=== PATIENT | male | born 1945 | race Caucasian/White ===

== ENCOUNTER → 2016-08-30 | Outpatient (REF) | payer MEDICARE ==
[~2016-08-30] MED LIST: AKWA TEARS OU; AMLO10TAB OR; AMLO2.5T OR; ASPI81TA45 OR; BISA10SU2 PR; COLA100C2 PO; COLCPOW6 PO; COZA100T OR; DIAZ5TAB OR; DOXY100T OR; FLECTOR1.3 TOP; FLEXERIL PO; FLON0.05; GLIM1TAB OR; GLIM1TAB PO; GLIMEPIRIDE PO; GLUC1000 OR; HYDR4TAB OR; JANUVIA PO; LIDO5DIS TD; LOPR50TA OR; METF500T4 OR; METHYLPREDNISOLONE PO; OMEPRAZOLE DR PO; PERC5TAB8 OR; SIMV20TA2 OR; TYL OR; VALI5TAB OR; [UNRECOGNIZED DRUG - OTHER] PO
[2016-08-30 17:07] LABS: ALBUMIN 3.8 GM/DL (3.2-5.2); ALBUMIN/GLOBULIN RATIO 1.41 (1.00-1.93); ALKALINE PHOSPHATASE 58 U/L (45-117); ALT/SGPT 19 U/L (12-78); ANION GAP 7 MEQ/L (8-16); AST/SGOT 14 U/L (15-37); BILIRUBIN,TOTAL 0.7 MG/DL (0.2-1.0); BLOOD UREA NITROGEN 15 MG/DL (7-18); CALCIUM LEVEL 8.4 MG/DL (8.8-10.2); CARBON DIOXIDE LEVEL 30 MEQ/L (21-32); CHLORIDE LEVEL 105 MEQ/L (98-107); CREATININE FOR GFR 1.09 MG/DL (0.70-1.30); GLOMERULAR FILTRATION RATE > 60.0 (>42); GLUCOSE, FASTING 150 MG/DL (83-110); POTASSIUM SERUM 4.1 MEQ/L (3.5-5.1); SODIUM LEVEL 142 MEQ/L (136-145); TOTAL PROTEIN 6.5 GM/DL (6.4-8.2)
[2016-08-30 18:32] LABS: MEAN CORPUSCULAR HEMOGLOBIN 30.9 pg (27.0-33.0); MEAN CORPUSCULAR HGB CONC 33.9 g/dl (32.0-36.5); MEAN CORPUSCULAR VOLUME 91.2 fl (80.0-96.0); RED CELL DISTRIBUTION WIDTH 12.2 % (11.5-14.5); WHITE BLOOD COUNT 8.7 K/mm3 (4.0-10.0)
== END ==
LOC: M SFHCCLAY 08:42
PROVIDERS: ATTEND Family Medicine
DX: Z00.00 Encounter for general adult medical examination without abnormal findings (principal); R53.82 Chronic fatigue, unspecified; E11.9 Type 2 diabetes mellitus without complications

== ENCOUNTER → 2017-07-05 | Outpatient (REF) | payer MEDICARE ==
[2017-07-05 12:00] LABS: ESTIMATED AVERAGE GLUCOSE 131 MG/DL (60-110); HEMOGLOBIN A1c 6.2 %
[2017-07-05 12:02] LABS: ALBUMIN 3.9 GM/DL (3.2-5.2); ALBUMIN/GLOBULIN RATIO 1.39 (1.00-1.93); ALKALINE PHOSPHATASE 51 U/L (45-117); ALT/SGPT 21 U/L (12-78); ANION GAP 6 MEQ/L (8-16); AST/SGOT 14 U/L (7-37); BILIRUBIN,TOTAL 0.7 MG/DL (0.2-1.0); BLOOD UREA NITROGEN 19 MG/DL (7-18); CALCIUM LEVEL 8.7 MG/DL (8.8-10.2); CARBON DIOXIDE LEVEL 31 MEQ/L (21-32); CHLORIDE LEVEL 106 MEQ/L (98-107); CHOLESTEROL LEVEL 177 MG/DL (<200); CHOLESTEROL RISK RATIO 3.218 (<5); CREATININE FOR GFR 0.96 MG/DL (0.70-1.30); GLOMERULAR FILTRATION RATE > 60.0 (>42); GLUCOSE, FASTING 144 MG/DL (83-110); HDL CHOLESTEROL 55 MG/DL (>40); LDL CHOLESTEROL 101.8 MG/DL (<100); NON-HDL-C 122 MG/DL; POTASSIUM SERUM 4.6 MEQ/L (3.5-5.1); SODIUM LEVEL 143 MEQ/L (136-145); TOTAL PROTEIN 6.7 GM/DL (6.4-8.2); TRIGLYCERIDES LEVEL 101 MG/DL (<150)
[2017-07-05 12:17] LABS: MALB URINE SIEMENS 8.3 MG/L; MAU/CREAT RATIO 5.1 MCG/MG (0.0-30.0)
== END ==
LOC: M SFHCCLAY 09:04
DX: E11.9 Type 2 diabetes mellitus without complications (principal); I10 Essential (primary) hypertension
CPT/HCPCS: 80053

== ENCOUNTER → 2017-11-14 | Outpatient (REF) | payer MEDICARE | LOC: M SFHCCLAY 10:13 | DX: D04.5 Carcinoma in situ of skin of trunk (principal); D48.5 Neoplasm of uncertain behavior of skin (principal) | CPT/HCPCS: 88305 ==

== ENCOUNTER → 2018-02-12 | Outpatient (REF) | payer MEDICARE ==
[2018-02-12 11:49] LABS: ANION GAP 8 MEQ/L (8-16); BLOOD UREA NITROGEN 20 MG/DL (7-18); CARBON DIOXIDE LEVEL 31 MEQ/L (21-32); CHLORIDE LEVEL 105 MEQ/L (98-107); CREATININE FOR GFR 1.09 MG/DL (0.70-1.30); GLOMERULAR FILTRATION RATE > 60.0 (>42); GLUCOSE, FASTING 158 MG/DL (70-100); SODIUM LEVEL 144 MEQ/L (136-145)
[2018-02-12 12:03] LABS: ESTIMATED AVERAGE GLUCOSE 157 MG/DL (60-110); HEMOGLOBIN A1c 7.1 %
== END ==
LOC: M SFHCCLAY 07:40
DX: I10 Essential (primary) hypertension (principal); E11.9 Type 2 diabetes mellitus without complications
CPT/HCPCS: 83036

== ENCOUNTER → 2018-06-18 | Outpatient (REF) | payer MEDICARE ==
[2018-06-18 13:56] LABS: HEMOGLOBIN A1c 7.1 %
== END ==
LOC: M SFHCCLAY 08:20
PROVIDERS: ATTEND Family Medicine
DX: E11.9 Type 2 diabetes mellitus without complications (principal); I10 Essential (primary) hypertension
CPT/HCPCS: 83036; G0463

== ENCOUNTER → 2018-07-08 | Outpatient (REF) | payer MEDICARE ==
[2018-07-08 12:45] LABS: BLOOD UREA NITROGEN 15 MG/DL (7-18); CALCIUM LEVEL 9.5 MG/DL (8.8-10.2); CARBON DIOXIDE LEVEL 29 MEQ/L (21-32); CHLORIDE LEVEL 103 MEQ/L (98-107); CREATININE FOR GFR 1.07 MG/DL (0.70-1.30); GLOMERULAR FILTRATION RATE > 60.0 (>42); GLUCOSE, FASTING 140 MG/DL (70-100); POTASSIUM SERUM 4.1 MEQ/L (3.5-5.1); SODIUM LEVEL 139 MEQ/L (136-145)
[2018-07-08 12:46] LABS: HEMATOCRIT 43.1 % (42.0-52.0); HEMOGLOBIN 14.6 g/dl (13.5-17.5); MEAN CORPUSCULAR HEMOGLOBIN 30.7 pg (27.0-33.0); MEAN CORPUSCULAR HGB CONC 33.9 g/dl (32.0-36.5); MEAN CORPUSCULAR VOLUME 90.5 fl (80.0-96.0); PLATELET COUNT, AUTOMATED 248 10^3/uL (150-450); RED BLOOD COUNT 4.76 10^6/uL (4.30-6.10); WHITE BLOOD COUNT 8.4 10^3/uL (4.0-10.0)
[2018-07-10 00:07] LABS: Lyme Disease IgG/IgM Antibodie <0.91 ISR (0.00-0.90); Lyme Disease IgM Ab Quantitati <0.80 index (0.00-0.79)
== END ==
LOC: M SFHCCLAY 08:33
PROVIDERS: ATTEND Family Medicine
DX: G44.321 Chronic post-traumatic headache, intractable (principal)
CPT/HCPCS: 80048; 85027; 86617; G0463

== ENCOUNTER → 2018-07-14 | Outpatient (CLI) | payer MEDICARE ==
--- NOTE | 2018-07-14 20:00 | REP ---
MR BRAIN WITHOUT CONTRAST: HISTORY: Chronic post-traumatic headache. COMPARISON: 11/06/2011 Scattered punctate areas of increased signal intensity on T2 weighted images are present in the periventricular and subcortical white matter. This represents small vessel ischemic disease. There is no intraparenchymal hemorrhage, infarct, mass, or midline shift. The ventricular system and cortical sulci are dilated consistent with moderate volume loss. There is no extracerebral collection. Mucosal thickening is present in the sinuses. IMPRESSION:1. Minimal small vessel ischemic disease. 2. Moderate volume loss. Electronically Signed by Kyle Blackburn MD 07/15/2018 08:24 A
== END ==
LOC: M RAD 16:16
PROVIDERS: ATTEND Family Medicine
DX: G44.321 Chronic post-traumatic headache, intractable (principal); Z86.73 Personal history of transient ischemic attack (TIA), and cerebral infarction without residual deficits; I67.82 Cerebral ischemia

== ENCOUNTER → 2018-07-28 | Outpatient (REF) | payer MEDICARE | LOC: M SFHCCLAY 13:58 | PROVIDERS: ATTEND Family Medicine | DX: R51 Headache (principal) ==

== ENCOUNTER → 2019-03-11 | Outpatient (REF) | payer MEDICARE ==
[2019-03-11 17:23] LABS: ALBUMIN 3.6 GM/DL (3.2-5.2); ALT/SGPT 20 U/L (12-78); BILIRUBIN,TOTAL 0.8 MG/DL (0.2-1.0); BLOOD UREA NITROGEN 16 MG/DL (7-18); CALCIUM LEVEL 9.2 MG/DL (8.8-10.2); CARBON DIOXIDE LEVEL 30 MEQ/L (21-32); CHLORIDE LEVEL 104 MEQ/L (98-107); CHOLESTEROL LEVEL 167 MG/DL (<200); CREATININE FOR GFR 0.99 MG/DL (0.70-1.30); GLOMERULAR FILTRATION RATE > 60.0 (>42); GLUCOSE, FASTING 153 MG/DL (70-100); HDL CHOLESTEROL 50 MG/DL (>40); LDL CHOLESTEROL 87 MG/DL (<100); NON-HDL-C 117 MG/DL; POTASSIUM SERUM 4.4 MEQ/L (3.5-5.1); SODIUM LEVEL 140 MEQ/L (136-145); TOTAL PROTEIN 6.5 GM/DL (6.4-8.2); TRIGLYCERIDES LEVEL 148 MG/DL (<150)
[2019-03-11 17:42] LABS: MALB URINE SIEMENS 6.6 MG/L; MAU/CREAT RATIO 4.1 MCG/MG (0.0-30.0)
[2019-03-11 18:17] LABS: HEMOGLOBIN A1c 7.1 %
== END ==
LOC: M SFHCCLAY 09:37
PROVIDERS: ATTEND Family Medicine
DX: I10 Essential (primary) hypertension (principal); E11.9 Type 2 diabetes mellitus without complications
CPT/HCPCS: 80053; 80061; 82043; 83036; G0463

== ENCOUNTER → 2019-04-28 | Outpatient (REF) | payer MEDICARE ==
[2019-04-28 13:16] LABS: BLOOD UREA NITROGEN 16 MG/DL (7-18); CALCIUM LEVEL 8.9 MG/DL (8.8-10.2); CARBON DIOXIDE LEVEL 31 MEQ/L (21-32); CHLORIDE LEVEL 107 MEQ/L (98-107); CREATININE FOR GFR 1.03 MG/DL (0.70-1.30); GLOMERULAR FILTRATION RATE > 60.0 (>42); GLUCOSE, FASTING 176 MG/DL (70-100); POTASSIUM SERUM 4.4 MEQ/L (3.5-5.1); SODIUM LEVEL 142 MEQ/L (136-145); TOTAL PROTEIN 6.6 GM/DL (6.4-8.2)
[2019-04-30 00:07] LABS: ANA (HEP2) Positive (.); CYCLIC CITRULLINATED PEPTIDE 10 units (0-19); Lyme Disease IgG/IgM Antibodie <0.91 ISR (0.00-0.90); Lyme Disease IgM Ab Quantitati <0.80 index (0.00-0.79)
[2019-04-30 12:40] LABS: ALBUMIN 4.17 GM/DL (3.29-5.55); ALBUMIN % 63.2 % (55.8-66.1); ALPHA-1-GLOBULIN % 4.4 % (2.9-4.9); ALPHA-1-GLOBULINS 0.29 GM/DL (0.17-0.41); ALPHA-2-GLOBULINS 0.65 GM/DL (0.42-0.99); ALPHA-2-GLOBULINS % 9.9 % (7.1-11.8); BETA-1-GLOBULINS 0.39 GM/DL (0.28-0.60); BETA-1-GLOBULINS % 5.9 % (4.7-7.2); BETA-2-GLOBULINS 0.36 GM/DL (0.19-0.55); BETA-2-GLOBULINS % 5.4 % (3.2-6.5); GAMMA GLOBULIN % 11.2 % (11.1-18.8); GAMMA GLOBULINS 0.74 GM/DL (0.65-1.58)
== END ==
LOC: M SFHCCLAY 08:52
PROVIDERS: ATTEND Family Medicine
DX: R51 Headache (principal); I10 Essential (primary) hypertension; Z12.5 Encounter for screening for malignant neoplasm of prostate
CPT/HCPCS: 80048; 83036; 84165; 85652; 86038; 86200; 86617; G0103; G0463

== ENCOUNTER 2019-06-16 12:14 | Emergency (ER) | payer MEDICARE ==
[~2019-06-16] VITALS: Ht 188 cm; Wt 100.0 kg
[2019-06-16] MEDS ORDERED: ASPIRIN 81 MG CHEW TABLET PO ONE (12:45)
[2019-06-16 12:50] LABS: BASO # 0.1 10^3/uL (0.0-0.2); EOS # 0.7 10^3/uL (0.0-0.5); EOS % 8.5 % (0.0-3.0); HEMATOCRIT 47.2 % (42.0-52.0); HEMOGLOBIN 15.5 g/dl (13.5-17.5); LYMPH # 2.6 10^3/uL (1.5-5.0); LYMPH % 32.5 % (24.0-44.0); MEAN CORPUSCULAR HEMOGLOBIN 30.2 pg (27.0-33.0); MEAN CORPUSCULAR HGB CONC 32.8 g/dl (32.0-36.5); MONO # 0.5 10^3/uL (0.0-0.8); MONO % 5.8 % (0.0-5.0); NEUTROPHILS # 4.2 10^3/uL (1.5-8.5); NEUTROPHILS % 51.9 % (36.0-66.0); PLATELET COUNT, AUTOMATED 262 10^3/uL (150-450); RED BLOOD COUNT 5.13 10^6/uL (4.30-6.10)
[2019-06-16 13:03] LABS: INR 1.04; PROTHROMBIN TIME 13.3 SECONDS (11.8-14.0)
--- NOTE | 2019-06-16 13:14 | REP ---
Portable chest x-ray: Two views. History: Chest pain. Comparison study: November 06, 2013. Findings: There is mild linear fibrosis in the left base. Left hemidiaphragm remains slightly elevated. The lungs are otherwise clear. Pleural angles are sharp. Cardiomediastinal silhouette is unremarkable. There are degenerative changes in the thoracic spine. Pulmonary vasculature is not increased. Impression: No active disease. Electronically Signed by Kane Rangel MD 06/16/2019 01:05 P
[2019-06-16 13:17] LABS: ALBUMIN 3.6 GM/DL (3.2-5.2); BILIRUBIN,DIRECT 0.2 MG/DL (0.0-0.2); BILIRUBIN,TOTAL 0.8 MG/DL (0.2-1.0); TOTAL PROTEIN 7.2 GM/DL (6.4-8.2)
[2019-06-16 13:18] LABS: BLOOD UREA NITROGEN 17 MG/DL (7-18); CALCIUM LEVEL 9.2 MG/DL (8.8-10.2); CARBON DIOXIDE LEVEL 30 MEQ/L (21-32); CHLORIDE LEVEL 102 MEQ/L (98-107); CK-MB VALUE MASS < 1.0 NG/ML (<3.6); CPK CREATINE PHOSPHOKINASE 57 U/L (39-308); CREATININE FOR GFR 1.27 MG/DL (0.70-1.30); GLOMERULAR FILTRATION RATE 58.9 (>42); GLUCOSE, FASTING 251 MG/DL (70-100); MB/CK RELATIVE INDEX 1.75 (< OR =4); POTASSIUM SERUM 4.1 MEQ/L (3.5-5.1); SODIUM LEVEL 140 MEQ/L (136-145); TROPONIN I < 0.02 NG/ML (< 0.10)
[2019-06-16 13:45] VITALS: BP 108/66
--- NOTE | 2019-06-17 08:03 | ECGEPIP ---
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
== END 2019-06-16 13:57 | disposition home or self-care (01) ==
LOC: M ED 12:14
DX: R07.89 Other chest pain (principal); R06.02 Shortness of breath; I51.9 Heart disease, unspecified; E11.9 Type 2 diabetes mellitus without complications; I10 Essential (primary) hypertension; K21.9 Gastro-esophageal reflux disease without esophagitis; G89.29 Other chronic pain; G61.0 Guillain-Barre syndrome; Z79.82 Long term (current) use of aspirin; Z79.84 Long term (current) use of oral hypoglycemic drugs; Z79.899 Other long term (current) drug therapy

== ENCOUNTER → 2019-07-29 | Outpatient (REF) | payer MEDICARE ==
[2019-07-29 17:15] LABS: ALBUMIN 3.8 GM/DL (3.2-5.2); ALT/SGPT 26 U/L (12-78); BILIRUBIN,TOTAL 0.6 MG/DL (0.2-1.0); BLOOD UREA NITROGEN 13 MG/DL (7-18); CALCIUM LEVEL 9.3 MG/DL (8.8-10.2); CARBON DIOXIDE LEVEL 32 MEQ/L (21-32); CHLORIDE LEVEL 105 MEQ/L (98-107); CHOLESTEROL LEVEL 196 MG/DL (<200); CHOLESTEROL RISK RATIO 3.843 (<5); CREATININE FOR GFR 1.05 MG/DL (0.70-1.30); GLOMERULAR FILTRATION RATE > 60.0 (>42); GLUCOSE, FASTING 154 MG/DL (70-100); HDL CHOLESTEROL 51 MG/DL (>40); LDL CHOLESTEROL 116 MG/DL (<100); NON-HDL-C 145 MG/DL; POTASSIUM SERUM 4.4 MEQ/L (3.5-5.1); SODIUM LEVEL 141 MEQ/L (136-145); TOTAL PROTEIN 6.7 GM/DL (6.4-8.2); TRIGLYCERIDES LEVEL 147 MG/DL (<150)
[2019-07-29 17:37] LABS: HEMOGLOBIN A1c 7.4 %
[2019-07-29 17:55] LABS: MAU/CREAT RATIO 4.7 MCG/MG (0.0-30.0)
== END ==
LOC: M SFHCCLAY 11:03
PROVIDERS: ATTEND Family Medicine
DX: E11.9 Type 2 diabetes mellitus without complications (principal); I10 Essential (primary) hypertension

== ENCOUNTER → 2019-08-12 | Outpatient (REF) | payer MEDICARE | LOC: M LAB REF 09:00 | PROVIDERS: ATTEND Dermatology | DX: D22.71 Melanocytic nevi of right lower limb, including hip (principal); L57.0 Actinic keratosis ==

== ENCOUNTER → 2019-10-27 | Outpatient (CLI) | payer MEDICARE ==
[~2019-10-27] MED LIST changes: +AMLO10TA5 PO; +ASPI81TA85 PO; +ATOR40TA75 PO; +CENT1TAB PO; +CLAR10CA3 PO; +FLUO1CRE2 TOP; +GLIM1TAB4 PO; +HYDR25TAB PO; +LOSA100T50 PO; +METF500T13 PO; +METO50TA7 PO; +MIRA3350 PO; +OMEP-218 PO; +TRAD5TAB PO
== END ==
LOC: M LABSMTC 10:57
PROVIDERS: ATTEND Anesthesiology
DX: Z01.818 Encounter for other preprocedural examination (principal); Z11.59 Encounter for screening for other viral diseases

== ENCOUNTER 2019-10-29 10:19 | Day surgery (SDC) | payer MEDICARE ==
[~2019-10-29] VITALS: Ht 188 cm; Wt 98.0 kg
[~2019-10-29 10:19] MED LIST changes: +NS 1,000 ML IV ONE
[2019-10-29] MEDS ORDERED: LIDOCAINE 2% 100MG/5ML SDV (FOR ANES.) As Ordered ONE (10:36)
[2019-10-29] MEDS ORDERED: propofoL 200 MG/20 ML VIAL As Ordered ONE (10:36)
--- NOTE | 2019-10-29 12:14 | ROOR ---
Patient Name: Yoav Antunez Procedure Date: 10/29/2019 11:38 AM Date of : 1945 Age: 73 Room: [facility] Gender: Male Note Status: Finalized Procedure: Colonoscopy Indications: High risk colon cancer surveillance: Personal history of colonic polyps Providers: Ilya Ponce MD Referring MD: Scar Castro MD Requesting Provider: Medicines: Monitored Anesthesia Care Complications: No immediate complications. Procedure: Pre-Anesthesia Assessment: - Prior to the procedure, a History and Physical was performed, and patient medications and allergies were reviewed. The patient is competent. The risks and benefits of the procedure and the sedation options and risks were discussed with the patient. All questions were answered and informed consent was obtained. Patient identification and proposed procedure were verified by the physician, the nurse and the guest service host in the endoscopy suite. Mental Status Examination: alert and oriented. Airway Examination: normal oropharyngeal airway and neck mobility. Respiratory Examination: clear to auscultation. CV Examination: normal. Prophylactic Antibiotics: The patient does not require prophylactic antibiotics. Prior Anticoagulants: The patient has taken no previous anticoagulant or antiplatelet agents except for aspirin. ASA Grade Assessment: III - A patient with severe systemic disease. After reviewing the risks and benefits, the patient was deemed in satisfactory condition to undergo the procedure. The anesthesia plan was to use monitored anesthesia care (MAC). Immediately prior to administration of medications, the patient was re-assessed for adequacy to receive sedatives. The heart rate, respiratory rate, oxygen saturations, blood pressure, adequacy of pulmonary ventilation, and response to care were monitored throughout the procedure. The physical status of the patient was re-assessed after the procedure. The Colonoscope was introduced through the anus and advanced to the cecum, identified by appendiceal orifice and ileocecal valve. The colonoscopy was performed without difficulty. The patient tolerated the procedure well. The quality of the bowel preparation was good. Findings: Hemorrhoids were found on perianal exam. A diminutive polyp was found in the appendiceal orifice. The polyp was sessile. The polyp was removed with a cold snare. Resection and retrieval were complete. Estimated blood loss was minimal. A diminutive polyp was found in the transverse colon. The polyp was sessile. The polyp was removed with a cold snare. Resection and retrieval were complete. Estimated blood loss was minimal. A diminutive polyp was found in the descending colon. The polyp was sessile. The polyp was removed with a cold snare. Resection and retrieval were complete. Estimated blood loss was minimal. The retroflexed view of the distal rectum and anal verge was normal and showed no anal or rectal abnormalities. Impression: - Hemorrhoids found on perianal exam. - One diminutive polyp at the appendiceal orifice, removed with a cold snare. Resected and retrieved. - One diminutive polyp in the transverse colon, removed with a cold snare. Resected and retrieved. - One diminutive polyp in the descending colon, removed with a cold snare. Resected and retrieved. - The distal rectum and anal verge are normal on retroflexion view. Recommendation: - Discharge patient to home (ambulatory). - - Repeat colonoscopy at 5 years (optional) depending on his general health Ilya Ponce MD Ilya Ponce MD 10/29/2019 12:14:24 PM Electronically signed by Ilya Ponce MD Number of Addenda: 0 Note Initiated On: 10/29/2019 11:38 AM Estimated Blood Loss: Estimated blood loss was minimal.
[2019-10-29 12:43] VITALS: BP 126/69
== END 2019-10-29 12:46 | disposition home or self-care (01) ==
LOC: M OPP 10:19
PROVIDERS: ATTEND Surgery
DX: D12.1 Benign neoplasm of appendix (principal); D12.3 Benign neoplasm of transverse colon; D12.4 Benign neoplasm of descending colon; D12.5 Benign neoplasm of sigmoid colon; K64.9 Unspecified hemorrhoids; R10.2 Pelvic and perineal pain; K21.9 Gastro-esophageal reflux disease without esophagitis; K59.00 Constipation, unspecified; Z86.010 Personal history of colon polyps; I10 Essential (primary) hypertension; E11.9 Type 2 diabetes mellitus without complications; Z79.899 Other long term (current) drug therapy; Z91.018 Allergy to other foods

== ENCOUNTER → 2019-12-01 | Outpatient (REF) | payer MEDICARE ==
[~2019-12-01] MED LIST changes: -NS 1,000 ML IV ONE
[2019-12-02 12:07] LABS: BLOOD UREA NITROGEN 18 MG/DL (7-18); CALCIUM LEVEL 8.9 MG/DL (8.8-10.2); CARBON DIOXIDE LEVEL 31 MEQ/L (21-32); CHLORIDE LEVEL 103 MEQ/L (98-107); CREATININE FOR GFR 1.01 MG/DL (0.70-1.30); GLOMERULAR FILTRATION RATE > 60.0 (>42); GLUCOSE, FASTING 148 MG/DL (70-100); POTASSIUM SERUM 3.9 MEQ/L (3.5-5.1); SODIUM LEVEL 138 MEQ/L (136-145)
[2019-12-02 13:02] LABS: HEMOGLOBIN A1c 7.9 %
== END ==
LOC: M SFHCCLAY 15:45
PROVIDERS: ATTEND Family Medicine
DX: R53.1 Weakness (principal); E11.9 Type 2 diabetes mellitus without complications; I10 Essential (primary) hypertension

== ENCOUNTER → 2020-07-26 | Outpatient (REF) | payer MEDICARE ==
[~2020-07-26] MED LIST changes: -AMLO10TA5 PO; +AMLO1TAB25 PO; -ASPI81TA85 PO; +ASPI81TA86 PO
[2020-07-26 16:50] LABS: BLOOD UREA NITROGEN 16 MG/DL (7-18); CALCIUM LEVEL 9.3 MG/DL (8.8-10.2); CARBON DIOXIDE LEVEL 32 MEQ/L (21-32); CHLORIDE LEVEL 106 MEQ/L (98-107); CPK CREATINE PHOSPHOKINASE 98 U/L (39-308); CREATININE FOR GFR 1.19 MG/DL (0.70-1.30); GLOMERULAR FILTRATION RATE > 60.0 (>42); GLUCOSE, FASTING 162 MG/DL (70-100); POTASSIUM SERUM 4.8 MEQ/L (3.5-5.1); SODIUM LEVEL 141 MEQ/L (136-145)
[2020-07-26 20:44] LABS: HEMOGLOBIN A1c 6.9 %
== END ==
LOC: M SFHCCLAY 11:00
PROVIDERS: ATTEND Family Medicine
DX: M79.10 Myalgia, unspecified site (principal); E11.9 Type 2 diabetes mellitus without complications; I10 Essential (primary) hypertension
CPT/HCPCS: 80048; 82550; 83036; 85652; G0463

== ENCOUNTER 2020-09-24 11:33 | Observation (INO) | payer MEDICARE ==
[~2020-09-24] VITALS: Ht 188 cm; Wt 95.0 kg
[~2020-09-24 11:33] MED LIST changes: +HYDR-3490 PO; -HYDR25TAB PO
[2020-09-24] MEDS ORDERED: JARD1TAB PO (11:51)
[2020-09-24] MEDS ORDERED: DIAZ5TAB PO (11:51)
[2020-09-24] MEDS ORDERED: PENI500T PO (11:51)
[2020-09-24 12:10] LABS: BASO # 0.1 10^3/uL (0.0-0.2); BASO % 1.1 % (0.0-1.0); EOS # 1.2 10^3/uL (0.0-0.5); EOS % 12.9 % (0.0-3.0); HEMATOCRIT 46.4 % (42.0-52.0); HEMOGLOBIN 15.5 g/dl (13.5-17.5); LYMPH # 2.9 10^3/uL (1.5-5.0); LYMPH % 30.4 % (24.0-44.0); MEAN CORPUSCULAR HGB CONC 33.4 g/dl (32.0-36.5); MEAN CORPUSCULAR VOLUME 92.8 fl (80.0-96.0); MONO # 0.6 10^3/uL (0.0-0.8); MONO % 5.9 % (2.0-8.0); NEUTROPHILS # 4.7 10^3/uL (1.5-8.5); NEUTROPHILS % 49.4 % (36.0-66.0); PLATELET COUNT, AUTOMATED 246 10^3/uL (150-450); WHITE BLOOD COUNT 9.5 10^3/uL (4.0-10.0)
[2020-09-24 12:20] LABS: INR 0.94; PARTIAL THROMBOPLASTIN TIME 23.5 SECONDS (24.2-38.5); PROTHROMBIN TIME 12.8 SECONDS (12.5-14.3)
--- NOTE | 2020-09-24 12:21 | REP ---
INDICATION: left arm weakness. COMPARISON: Comparison brain MRI study is from July 14, 2018. Comparison CT study is from August 20, 2013.. TECHNIQUE: Helical scanning is acquired. 5 mm axial images were reformatted. Coronal MPR images were generated. FINDINGS: Bone window settings demonstrate an intact bony calvarium. There is no evidence of skull fracture or incidental bony calvarial lesion. The visualized paranasal sinuses appear clear. No intraorbital abnormality is seen. On soft tissue window setting images; the lateral, third, and fourth ventricles are normal in size and position. Rodríguez-white differentiation pattern is normal above and below the tentorium. There are is no evidence of intracranial hemorrhage. No mass, edema, infarction, or midline shift is seen. No extra-axial fluid collection is appreciated. There is moderate generalized volume loss. Vascular calcification is observed in the distal vertebral and distal internal carotid arteries. IMPRESSION: Moderate generalized volume loss. Advanced vascular calcification. Findings unchanged from the [address] study. No acute intracranial abnormality.. <Electronically signed by Mario Rangel > 09/24/20 [id number]
[2020-09-24] MEDS ORDERED: ASPI81TA26 PO (12:39)
[2020-09-24] MEDS ORDERED: MONT10TA10 PO (12:39)
[2020-09-24 12:40] LABS: CK-MB VALUE MASS 1.4 NG/ML (<3.6); CPK CREATINE PHOSPHOKINASE 76 U/L (39-308); MB/CK RELATIVE INDEX 1.84 (< OR =4); TROPONIN I < 0.02 NG/ML (< 0.10)
--- NOTE | 2020-09-24 12:57 | REP ---
INDICATION: CVA. COMPARISON: Comparison portable chest x-ray is from June 16, 2019. TECHNIQUE: Portable upright AP chest radiograph. FINDINGS: The lungs are well inflated and free of infiltrate. Pleural angles are sharp. Heart size is normal. Pulmonary vasculature is not increased. EKG monitoring electrodes are noted. IMPRESSION: No active disease. <Electronically signed by Mario Rangel > 09/24/20 [id number]
[2020-09-24] MEDS ORDERED: PENICILLIN V POTASSIUM 500 MG TAB PO SCH (13:00)
[2020-09-24] MEDS ORDERED: PREVAGEN PO (13:06)
[2020-09-24] MEDS ORDERED: MIRA3350 PO (13:06)
[2020-09-24] MEDS ORDERED: CENT1TAB PO (13:06)
[2020-09-24 13:24] LABS: RSV AMPLIFICATION NEGATIVE (NEGATIVE)
[2020-09-24] MEDS ORDERED: MIRALAX *UNIT DOSE* 17GM PACKET PO PRN (13:40)
[2020-09-24] MEDS ORDERED: GLUCAGON INJ 1MG VIAL SC PRN (13:40)
[2020-09-24] MEDS ORDERED: diazePAM 5MG TABLET PO PRN (13:40)
[2020-09-24] MEDS ORDERED: GLUCOSE 4GM CHEW TABLET PO PRN (13:40)
[2020-09-24] MEDS ORDERED: DEXTROSE 50% 50 ML SYRINGE IV PRN (13:40)
--- NOTE | 2020-09-24 14:50 | HPEPDOC ---
General Date of Admission Sep 24, 2020 Date of Service: Sep 24, 2020 Chief Complaint The patient is a 74-year-old male admitted with a reason for visit of left arm weakness. Source: Patient History of Present Illness Mr. Antunez is a 74 year old male with diabetes mellitus type 2, hypertension, and history of carotid artery stenosis here with left arm weakness. He tells me that about a year ago, he had left arm weakness and word finding difficulties which lasted for an hour. He thought that this may be secondary to low blood sugar as it resolved after drinking soda. He does have history of carotid artery stenosis. He used to see someone in [place], but told him he was stable and would not need a follow-up for a year. This morning, he felt weak. He was trying to dress himself when he noticed he had weakness in the left arm. To him, he felt like his arm was rubber. He had trouble controlling the motion of his left arm. He denies any lightheadedness, weakness in the right arm, weakness in the legs, or trouble speaking. This occurred around 9 AM. He came to the ED to be evaluated. When he was evaluated in the ED, his symptoms resolved. About 3 hours has passed since it first started. Patient was given full dose aspirin. Work up in the ED was negative for hypoglycemia. CT head demonstrated no acute intracranial activity. When I saw him, he tell me that his left arm was moving better. Strength is about equal on both sides, but finger to nose with left arm is slow and not direct. Case discussed with neurology. Increase aspirin to 325mg qD while inpatient, continue atorvastatin, and complete stroke work up. Patient will be admitted for TIA vs CVA. Home Medications Scheduled Amlodipine Besylate (Amlodipine Besylate) 10 Mg Tablet, 10 MG PO DAILY, (Reported) Aspirin (Aspirin EC) 81 Mg Tablet.dr, 81 MG PO BID, (Reported) Atorvastatin Calcium (Atorvastatin Calcium) 40 Mg Tablet, 40 MG PO QHS, (Reported) Empagliflozin (Jardiance) 10 Mg Tablet, 10 MG PO DAILY, (Reported) Glimepiride (Glimepiride) 1 Mg Tablet, 0.5 MG PO DAILY, (Reported) Hydrochlorothiazide (Hydrochlorothiazide) 25 Mg Tablet, 25 MG PO DAILY, (Reported) Linagliptin (Tradjenta) 5 Mg Tablet, 5 MG PO DAILY, (Reported) Losartan Potassium (Losartan Potassium) 100 Mg Tablet, 100 MG PO DAILY, (Reported) Metformin HCl (Metformin HCl) 500 Mg Tablet, 1,000 MG PO BID, (Reported) Metoprolol Tartrate (Metoprolol Tartrate) 50 Mg Tablet, 50 MG PO BID, (Reported) Montelukast Sodium (Montelukast Sodium) 10 Mg Tablet, 10 MG PO DAILY, (Reported) Multivit-Min/FA/Lycopen/Lutein (Centrum Silver Tablet) 1 Each Tablet, 1 TAB PO DAILY, (Reported) Omeprazole (Omeprazole) 20 Mg Capsule.dr, 20 MG PO BID, (Reported) Penicillin V Potassium (Penicillin V Potassium) 500 Mg Tablet, 500 MG PO QID, (Reported) [Prevagen] , 1 TAB PO DAILY, (Reported) Scheduled PRN Diazepam (Diazepam) 5 Mg Tablet, 5 MG PO DAILY PRN for BACK PAIN, (Reported) Polyethylene Glycol 3350 (Miralax) 119 Gm Powder, 17 GM PO DAILY PRN for CONSTIPATION, (Reported) dilute in 8 ounces of water or juice Allergies Coded Allergies: No Known Drug Allergies (Verified Allergy, Unknown, 06/16/19) banana (Verified Allergy, Unknown, 10/28/19) Past Medical History Medical History 1. Chronic back pain 2. Hypertension 3. Type 2 diabetes mellitus 4. Elevated cholesterol 5. Gout 6. Guillain-Gardner syndrome 7. Allergic rhinitis 8. Esophageal reflux 9. Occlusion and stenosis of carotid artery without mention of cerebral infarction 10. Suprapatellar bursitis 11. Colon adenoma 12. Gastritis Surgical History 1. Back surgery 2. Colonoscopy Family History Father: . History of lung cancer Mother: . History of breast cancer Social History * Smoker: Denies Alcohol: other (drinks about 6 beers a week) Drugs: denies A-FIB/CHADSVASC A-FIB History Current/History of A-Fib/PAF?: No Review of Systems Constitutional: Denies: Chills, Fever Eyes: Denies: Pain ENT: Reports: Sinus Congestion, Post Nasal Drip, Other Symptoms (tooth pain) Skin: Denies: Rash Pulmonary: Reports: Cough (secondary to postnasal drip); Denies: Dyspnea Cardiovascular: Denies: Chest Pain Gastrointestinal: Denies: Abdominal Pain, Diarrhea Genitourinary: Denies: Dysuria Hematologic: Denies: Bruising Neurological: Reports: Weakness (left arm) Psych: Denies: Anxiety, Depression Physical Examination General Exam: Positive: Alert, Cooperative Eye Exam: Positive: EOMI; Negative: Sclera icteric ENT Exam: Positive: Atraumatic Neck Exam: Positive: Supple Chest Exam: Positive: Clear to auscultation Heart Exam: Positive: Rate Normal, Regular Rhythm Abdomen Exam: Positive: Normal bowel sounds, Soft; Negative: Tenderness Extremity Exam: Negative: Edema Neuro Exam: Positive: Cranial Nerves 3-12 NL, Other (finger to nose with slower with left arm. Did not travel in straight line) Psych Exam: Positive: Mental status NL, Mood NL Vital Signs Vital Signs Date Time Temp Pulse Resp B/P (MAP) Pulse Ox O2 Delivery O2 Flow Rate FiO2 09/24/20 11:55 09/24/20 11:34 96.0 59 18 97 Room Air Laboratory Data Labs 24H Laboratory Tests 2 09/24/20 11:55: Immature Granulocyte % (Auto) 0.3, Neutrophils (%) (Auto) 49.4, Lymphocytes (%) (Auto) 30.4, Monocytes (%) (Auto) 5.9, Eosinophils (%) (Auto) 12.9H, Basophils (%) (Auto) 1.1H, Neutrophils # (Auto) 4.7, Lymphocytes # (Auto) 2.9, Monocytes # (Auto) 0.6, Eosinophils # (Auto) 1.2H, Basophils # (Auto) 0.1, Nucleated Red Blood Cells % (auto) 0.0, Prothrombin Time 12.8, Prothromb Time International Ratio 0.94, Activated Partial Thromboplast Time 23.5L, POC Glucose (Misc Panel) 150H, POC Sodium (Misc Panel) 139, POC Potassium (Misc Panel) 3.9, POC Chloride (Misc Panel) 98, POC Total CO2 (Misc Panel) 31.0H, POC Blood Urea Nitrogen (Misc Panel 21, POC Ionized Calcium (Misc Panel) 5.1, POC Creatinine (Misc Panel) 1.1, POC Hematocrit (Misc Panel) 46.0 09/24/20 11:56: Total Creatine Kinase 76, Creatine Kinase MB 1.4, Creatine Kinase MB Relative Index 1.84, Troponin I < 0.02 09/24/20 12:40: Coronavirus (COVID-19)(PCR) NEGATIVE, Influenza Type A (RT-PCR) NEGATIVE, Influenza Type B (RT-PCR) NEGATIVE, Respiratory Syncytial Virus (PCR) NEGATIVE CBC/BMP Laboratory Tests 09/24/20 11:55 Assessment/Plan Mr. Antunez is a 74 year old male with diabetes mellitus type 2, hypertension, and history of carotid artery stenosis here with left arm weakness. Patient was given 325mg of aspirin in the ED. Discussed with neurology. Continue with 325mg of aspirin daily while inpatient, continue ator vastatin, and complete the stroke work up. Patient will be admitted for stroke work up. Plan / VTE VTE Prophylaxis Ordered?: Yes Plan Plan 1. Left arm weakness -CVA vs TIA -Given 325mg of aspirin in the ED -CT head negative -Ordered for MRI brain, MRA head, MRA neck, and echocardiogram -Increase aspirin to 325mg aspirin daily -Continue Atorvastatin -Monitor on Telemetry -Ordered for HbA1c, lipid panel, and TSH 2. DM type 2 -Carbohydrate consistent diet -Sliding scale insulin 3. Tooth pain/infection -Outpatient started Penicillin V outpatient -On day 09/04 -Denies history of endocarditis or heart valve replacement 4. Hypertension -Blood pressure very well controlled at 116/61 -Unknown if CVA or stroke -Will hold amlodipine, HCTZ, losartan, and Lopressor. If MRI is negative for stroke, will restart blood pressure medication 5. GERD -Continue omeprazole 6. DVT ppx -SCD and TEDs Disposition: Pending results of MRI brain, MRA head and neck, echocardiogram, and telemetry. PT ordered MARISSA ALMANZA DO Sep 24, 2020 14:50
--- NOTE | 2020-09-24 16:06 | REP ---
INDICATION: CVA vs TIA. COMPARISON: Comparison MRI study images are from July 14, 2018. Comparison CT study is from earlier today.. TECHNIQUE: Axial and sagittal imaging planes are utilized for T1 and T2-weighted scans. Sequences include spin-echo, fast spin echo, FLAIR, and diffusion weighted sequences. FINDINGS: Bony calvarium is intact. There is moderate mucosal thickening affecting the maxillary and ethmoid sinuses bilaterally. No intraorbital abnormality is seen. Craniocervical junction upper cervical cord are normal in appearance. There is moderate generalized volume loss again noted. Diffusion-weighted scans demonstrate multiple scattered punctate foci of focal restricted diffusion in the right parietal lobe consistent with acute ischemia. There is no evidence of intracranial hemorrhage. There are 2 punctate foci of old hemosiderin staining in the right parietooccipital lobe. No other evidence of restricted diffusion is seen. No extra-axial fluid collection is observed. Mild small vessel changes are again seen. No intracranial mass lesion is observed. IMPRESSION: Multiple punctate foci of restricted diffusion in the right parietal lobe consistent with acute ischemia. No evidence of acute intracranial hemorrhage. Generalized volume loss and small vessel changes are again noted.. <Electronically signed by Mario Rangel > 09/24/20 [id number]
--- NOTE | 2020-09-24 16:14 | REP ---
INDICATION: CVA vs TIA, history of carotid artery stenosis. COMPARISON: Comparison carotid MR angio study April 17, 2011. Comparison carotid sonography November 06, 2011.. TECHNIQUE: 2D carotid MR angiography is acquired. Maximum density projection images are generated. Source axial images are reviewed. FINDINGS: The common carotid arteries are unremarkable. The left vertebral artery is dominant. The right vertebral artery is quite small. This is unchanged. There is bilateral proximal internal carotid artery stenosis. At the origin of the left internal carotid artery, there is 60% focal stenosis. The proximal 1.5 cm of the right ICA shows irregular plaquing and eccentric luminal narrowing approximately 85%. The cervical segments of the internal carotid arteries are unremarkable. IMPRESSION: 60% focal stenosis at the origin of the left internal carotid artery. Irregular plaquing and a more elongate 85% stenosis of the right proximal ICA. The vertebral arteries are patent but asymmetric left dominant, we right quite small. <Electronically signed by Mario Rangel > 09/24/20 [id number]
--- NOTE | 2020-09-24 16:17 | REP ---
INDICATION: CVA vs TIA. COMPARISON: No comparison MR angiography. Comparison is made with today's brain MRI study.. TECHNIQUE: 3-D [id number] MR angiography of the brain is acquired in the usual fashion and maximal intensity projection images were generated in rotational format about the vertical and horizontal axes. In addition, source axial T1-weighted images are viewed in cine mode. FINDINGS: The distal vertebral arteries are asymmetric the right distal most vertebral arteries not seen. The left is dominant. There is atherosclerotic irregularity of the distal vertebral artery on the left with moderate focal narrowing of the distal vertebral artery at the origin of the basilar. Basilar artery is tortuous but widely patent. The right posterior cerebral artery takes a persistent origin. Posterior cerebral and superior cerebellar vessels are otherwise normal and symmetric. The distal internal carotid arteries are unremarkable. The right A1 segment is hypoplastic. Anterior communicator is patent and the anterior cerebral on both sides is fed from the left A1 segment. No vessel cutoff is seen in either middle cerebral artery or anterior cerebral artery. There is no evidence of alston aneurysm or arteriovenous malformation. IMPRESSION: Left dominant vertebrals right not seen distally. There is distal vertebrals artery stenosis on the left at the origin of the basilar artery. Persistent origin of the right posterior cerebral from the anterior circulation. 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 Otherwise negative MR angiography of the brain.. <Electronically signed by Mario Rangel > 09/24/20 [id number]
[2020-09-24] MEDS: HumaLOG INSULIN (NovoLOG) PER UNIT SC SCH (17:30)
[2020-09-24] MEDS: LR 1,000 ML IV SCH ×2 (17:53→22:00)
[2020-09-24 20:00] VITALS: BP 143/80
[2020-09-24] MEDS: OMEPRAZOLE 20 MG CAP PO SCH (20:46)
[2020-09-24] MEDS: PENICILLIN V POTASSIUM 500 MG TAB PO SCH ×2 (20:47→21:00)
[2020-09-24] MEDS ORDERED: HumaLOG INSULIN (NovoLOG) PER UNIT SC SCH (21:00)
[2020-09-24] MEDS ORDERED: ATORVASTATIN 20 MG TAB PO SCH (21:00)
[2020-09-25] VITALS: BP 128/67
[2020-09-25 04:00] VITALS: BP 127/70
[2020-09-25 06:24] LABS: HEMATOCRIT 42.2 % (42.0-52.0); HEMOGLOBIN 14.2 g/dl (13.5-17.5); MEAN CORPUSCULAR HGB CONC 33.6 g/dl (32.0-36.5); MEAN CORPUSCULAR VOLUME 92.1 fl (80.0-96.0); PLATELET COUNT, AUTOMATED 219 10^3/uL (150-450); RED BLOOD COUNT 4.58 10^6/uL (4.30-6.10); WHITE BLOOD COUNT 8.3 10^3/uL (4.0-10.0)
[2020-09-25 06:52] LABS: BLOOD UREA NITROGEN 16 MG/DL (7-18); CALCIUM LEVEL 8.8 MG/DL (8.8-10.2); CARBON DIOXIDE LEVEL 33 MEQ/L (21-32); CHLORIDE LEVEL 105 MEQ/L (98-107); CHOLESTEROL LEVEL 156 MG/DL (<200); CREATININE FOR GFR 1.02 MG/DL (0.70-1.30); GLOMERULAR FILTRATION RATE > 60.0 (>42); GLUCOSE, FASTING 143 MG/DL (70-100); HDL CHOLESTEROL 50 MG/DL (>40); LDL CHOLESTEROL 77 MG/DL (<100); NON-HDL-C 106 MG/DL; POTASSIUM SERUM 3.8 MEQ/L (3.5-5.1); SODIUM LEVEL 141 MEQ/L (136-145); TRIGLYCERIDES LEVEL 144 MG/DL (<150)
[2020-09-25 07:06] LABS: HEMOGLOBIN A1c 6.7 %
[2020-09-25] MEDS: HumaLOG INSULIN (NovoLOG) PER UNIT SC SCH ×2 (07:30→12:41)
--- NOTE | 2020-09-25 07:35 | ECGEPIP ---
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
[2020-09-25 08:00] VITALS: BP 135/72
[2020-09-25] MEDS: OMEPRAZOLE 20 MG CAP PO SCH (08:19)
[2020-09-25] MEDS: PENICILLIN V POTASSIUM 500 MG TAB PO SCH ×2 (08:19→12:41)
[2020-09-25] MEDS ORDERED: MONTELUKAST 10 MG TAB PO SCH (09:00)
[2020-09-25] MEDS ORDERED: ASPIRIN ENTERIC 325 MG TAB PO SCH (09:00)
[2020-09-25] MEDS: LR 1,000 ML IV SCH (09:30)
[2020-09-25] MEDS ORDERED: ASPI32ECTA PO (14:09)
--- NOTE | 2020-09-25 22:38 | DS.PDOC ---
Discharge Summary General Date of Admission Sep 24, 2020 at 11:34 Date of Discharge Sep 25, 2020 Attending Physician: MARISSA ALMANZA DO Discharge Summary PROCEDURES PERFORMED DURING STAY: None ADMITTING DIAGNOSES: 1. CVA vs TIA 2. Diabetes mellitus type 2 3. Tooth pain/infection 4. Hypertension 5. GERD DISCHARGE DIAGNOSES: 1. Right parietal CVA 2. Diabetes mellitus type 2 3. Tooth pain/infection 4. Hypertension 5. GERD COMPLICATIONS/CHIEF COMPLAINT: Left arm weakness HISTORY OF PRESENT ILLNESS: Mr. Antunez is a 74 year old male with diabetes mellitus type 2, hypertension, and history of carotid artery stenosis here with left arm weakness. He tells me that about a year ago, he had left arm weakness and word finding difficulties which lasted for an hour. He thought that this may be secondary to low blood sugar as it resolved after drinking soda. He does have history of carotid artery stenosis. He used to see someone in [place], but told him he was stable and would not need a follow-up for a year. This morning, he felt weak. He was trying to dress himself when he noticed he had weakness in the left arm. To him, he felt like his arm was rubber. He had trouble controlling the motion of his left arm. He denies any lightheadedness, weakness in the right arm, weakness in the legs, or trouble speaking. This occurred around 9 AM. He came to the ED to be evaluated. When he was evaluated in the ED, his symptoms resolved. About 3 hours has passed since it first started. Patient was given full dose aspirin. Work up in the ED was negative for hypoglycemia. CT head demonstrated no acute intracranial activity. When I saw him, he tell me that his left arm was moving better. Strength is about equal on both sides, but finger to nose with left arm is slow and not direct. Case discussed with neurology. Increase aspirin to 325mg qD while inpatient, continue atorvastatin, and complete stroke work up. Patient will be admitted for TIA vs CVA. HOSPITAL COURSE: Later that evening, patient's MRI returned demonstrating right parietal CVA. Imaging also demonstrated right carotid artery stenosis of 85%. I reached out to neurology. Recommended continuing aspirin 325mg qD and following up outpatient with vascular surgery for carotid artery stenosis. Otherwise, no other events overnight. Echocardiogram was negative for shunting or thrombus. Tele was negative for atrial fibrillation. HbA1c was 6.7 and LDL was 77. The following morning, patient felt well. His left sided weakness resolved and his left finger to nose was faster and more direct. He felt ready for home and was subsequently discharged home. Patient was discharged home with aspirin increased to 325mg qD DISCHARGE MEDICATIONS: Please see below. ALLERGIES: Please see below. PHYSICAL EXAMINATION ON DISCHARGE: VITAL SIGNS: Please see below. GENERAL: Comfortable, in no apparent distress HEENT: Head normocephalic, atraumatic NECK: Supple CARDIOVASCULAR EXAMINATION: Regular rate and rhythm RESPIRATORY EXAMINATION: Lungs clear to auscultation bilaterally ABDOMINAL EXAMINATION: Soft, non-tender, normal bowel sounds EXTREMITIES: No pitting edema bilaterally SKIN: Warm and dry NEUROLOGICAL EXAMINATION: CN 3-12 grossly intact. Left finger to nose faster and more direct than right prior. PSYCHIATRIC EXAMINATION: Normal mood and affect LABORATORY DATA: Please see below. IMAGING: Radiologist interpretation MRI Brain Multiple punctate foci of restricted diffusion in the right parietal lobe consistent with acute ischemia. No evidence of acute intracranial hemorrhage. Generalized volume loss and small vessel changes are again noted MRA brain Left dominant vertebrals right not seen distally. There is distal vertebrals artery stenosis on the left at the origin of the basilar artery. Persistent origin of the right posterior cerebral from the anterior circulation. 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 Otherwise negative MR angiography of the brain Carotid artery MRI 60% focal stenosis at the origin of the left internal carotid artery. Irregular plaquing and a more elongate 85% stenosis of the right proximal ICA. The vertebral arteries are patent but asymmetric left dominant, we right quite small. PROGNOSIS: Good ACTIVITY: As tolerated. DIET: Carbohydrate consistent diet DISCHARGE PLAN: Home DISPOSITION: 01 Home, Self-Care. DISCHARGE INSTRUCTIONS: 1. Follow up with PCP within 1 week 2. Follow up with neurology within 1 week 3. Will need either PCP or neurology to discuss referral to vascular surgery for carotid artery stenosis ITEMS TO FOLLOWUP ON ON OUTPATIENT: 1. Right carotid artery stenosis DISCHARGE CONDITION: Stable. Total time spent on discharge planning, discharge summary, and medication reconciliation: 40 minutes Vital Signs/I&Os Vital Signs Date Time Temp Pulse Resp B/P (MAP) Pulse Ox O2 Delivery O2 Flow Rate FiO2 09/25/20 08:00 97.2 67 18 135/72 (93) 97 Room Air I&O- Last 24 Hours up to 6 AM 09/25/20 06:00 Intake Total 360 ml Output Total 1000 ml Balance -640 ml Laboratory Data Labs 24H Laboratory Tests 2 09/25/20 05:51: Nucleated Red Blood Cells % (auto) 0.0, Anion Gap 3L, Glomerular Filtration Rate > 60.0, Estimated Mean Plasma Glucose 146H, Hemoglobin A1c 6.7, Calcium Level 8.8, Triglycerides Level 144, Total Cholesterol 156, LDL Cholesterol 77, Non-HDL Cholesterol (LDL + VLDL) 106, Total HDL Cholesterol 50, Cholesterol/HDL Ratio 3.120, Thyroid Stimulating Hormone (TSH) 3.750H 09/25/20 11:23: Bedside Glucose (Misc Panel) 136H CBC/BMP Laboratory Tests 09/25/20 05:51 FSBS Laboratory Tests Test 09/25/20 11:23 Range/Units Bedside Glucose (Misc Panel) 136 83-110 MG/DL Discharge Medications Scheduled Aspirin (Aspirin EC) 325 Mg Tablet.dr, 325 MG PO DAILY Atorvastatin Calcium (Atorvastatin Calcium) 40 Mg Tablet, 40 MG PO QHS, (Reported) Empagliflozin (Jardiance) 10 Mg Tablet, 10 MG PO DAILY, (Reported) Glimepiride (Glimepiride) 1 Mg Tablet, 0.5 MG PO DAILY, (Reported) Linagliptin (Tradjenta) 5 Mg Tablet, 5 MG PO DAILY, (Reported) Losartan Potassium (Losartan Potassium) 100 Mg Tablet, 100 MG PO DAILY, (Reported) Metformin HCl (Metformin HCl) 500 Mg Tablet, 1,000 MG PO BID, (Reported) Montelukast Sodium (Montelukast Sodium) 10 Mg Tablet, 10 MG PO DAILY, (Reported) Multivit-Min/FA/Lycopen/Lutein (Centrum Silver Tablet) 1 Each Tablet, 1 TAB PO DAILY, (Reported) Omeprazole (Omeprazole) 20 Mg Capsule.dr, 20 MG PO BID, (Reported) Penicillin V Potassium (Penicillin V Potassium) 500 Mg Tablet, 500 MG PO QID, (Reported) [Prevagen] , 1 TAB PO DAILY, (Reported) Scheduled PRN Diazepam (Diazepam) 5 Mg Tablet, 5 MG PO DAILY PRN for BACK PAIN, (Reported) Polyethylene Glycol 3350 (Miralax) 119 Gm Powder, 17 GM PO DAILY PRN for CONSTIPATION, (Reported) dilute in 8 ounces of water or juice Allergies Coded Allergies: No Known Drug Allergies (Verified Allergy, Unknown, 06/16/19) banana (Verified Allergy, Unknown, 10/28/19) MARISSA ALMANZA 28, 2021 22:38
--- NOTE | 2020-09-26 14:48 | ECHO ---
DATE OF PROCEDURE: 09/25/2020 Age: 74 Gender: Male Height: 180 cm Weight: 97 kg REFERRING PHYSICIAN: Nelson Marcial DO. INDICATION: Acute cerebral stroke (unspecified). MEASUREMENTS: 2D Measurements: Left atrium 3.6 cm Aortic root 3.1 cm Intraventricular septum 0.87 cm Posterior wall 0.98 cm Left ventricle diastole 4.9 cm Aortic annulus 2.4 cm Left atrial volume index 27 Inferior vena cava 1.7 cm (more than 50% respiratory variation) Doppler Measurements: No aortic stenosis No aortic regurgitation Aortic valve velocity 192 cm/s LVOT velocity 75.7 cm/s No mitral regurgitation No mitral stenosis Mitral E velocity 71.6 cm/s Mitral A velocity 73.7 cm/s Mitral deceleration time 254 msec Very mild tricuspid regurgitation No pulmonic regurgitation Pulmonary artery acceleration time 114 msec MITRAL ANNULAR TISSUE DOPPLER E prime septal 7.94 cm/s, E prime lateral 10.9 cm/s DESCRIPTION: Rhythm was sinus. Image quality was fair. No pericardial effusion. This was a 2D, M-mode, color flow Doppler, and pulsed wave Doppler examination including mitral annular tissue Doppler. CONCLUSIONS: 1. Saline bubble study negative for detection of intracardiac shunting. 2. Normal left ventricle internal dimensions and wall thickness. Normal regional LV wall motion and wall thickening. Normal LV systolic function. LVEF 65% by visual estimate. Normal LV diastolic function for age. 3. Moderate aortic valve sclerosis of a 3-cuspid aortic valve. No aortic stenosis or regurgitation. 4. Moderate mitral annular calcification. No mitral stenosis or regurgitation. 5. Suggestive of normal pulmonary artery systolic pressure. Normal central venous pressure. Normal right atrial size. Normal right ventricle size and systolic function. 6. Otherwise normal appearing echocardiogram Doppler findings. [facility]
== END 2020-09-25 15:50 | disposition home or self-care (01) ==
LOC: M ED 11:33 → M ED INP 11:34 → M PCU 17:21
PROVIDERS: ADMIT Internal Medicine; ATTEND Internal Medicine
DX: G45.9 Transient cerebral ischemic attack, unspecified (principal); I10 Essential (primary) hypertension; E11.9 Type 2 diabetes mellitus without complications; I65.29 Occlusion and stenosis of unspecified carotid artery; M10.9 Gout, unspecified; K21.9 Gastro-esophageal reflux disease without esophagitis; E78.5 Hyperlipidemia, unspecified; Z79.82 Long term (current) use of aspirin; Z79.84 Long term (current) use of oral hypoglycemic drugs; Z79.899 Other long term (current) drug therapy; Z91.018 Allergy to other foods
CPT/HCPCS: 36415; 70450; 70544; 70547; 70551; 71045; 80047; 80048; 80061; 82550; 82553; 83036; 84443; 84484; 85025; 85027; 85610; 85730; 87631; 93005; 93041; 93306; 94760; 96360; 96361; 97161; 99285; G0378

== ENCOUNTER → 2020-10-17 | Outpatient (CLI) | payer MEDICARE ==
[~2020-10-17] MED LIST changes: +ASPI32ECTA PO; +ASPI81TA26 PO; +DIAZ5TAB PO; +JARD1TAB PO; +MONT10TA10 PO; +PENI500T PO; +PREVAGEN PO
== END ==
LOC: M LABSMTC 09:53
PROVIDERS: ATTEND Surgery Vascular Surgery
DX: Z01.818 Encounter for other preprocedural examination (principal); Z20.828 Contact with and (suspected) exposure to other viral communicable diseases

== ENCOUNTER → 2020-10-18 | Outpatient (CLI) | payer MEDICARE ==
--- NOTE | 2020-10-19 14:43 | SLEEPHOME ---
DATE: 10/18/2020 ORDERED BY: DARLENE GIBSON MD Diagnostic home sleep testing was performed due to concern for the obstructive sleep apnea syndrome in this patient with a history of pulmonary hypertension. Nine hours and 59 minutes of data were reviewed. There were 6 hours and 29 minutes marked as time in bed. During the interval marked time in bed, 47 respiratory events were identified of 10 seconds in duration or greater for a respiratory event index of 7.2. The events were primarily obstructive. Baseline pulse rate was 66. Pulse rate ranged 54 to 103. Baseline saturation was 92%. Saturations fell to 84%. Testing was performed in both the supine and nonsupine positions. IMPRESSION: Abnormal home sleep testing with repetitive respiratory events and oxygen desaturations to 84% with a respiratory event index of 7.2 is consistent with the obstructive sleep apnea syndrome. RECOMMENDATION: Given the patient's pulmonary hypertension, referral for formal sleep evaluation and treatment recommendations are suggested.
== END ==
LOC: M SLEEP HO 09:27
PROVIDERS: ATTEND Internal Medicine Cardiovascular Disease
DX: I27.23 Pulmonary hypertension due to lung diseases and hypoxia (principal)

== ENCOUNTER → 2020-12-05 | Outpatient (CLI) | payer SELFPAY | LOC: M LABSMTC 14:07 | PROVIDERS: ATTEND Pediatrics | DX: Z20.822 Contact with and (suspected) exposure to COVID-19 (principal) ==

== ENCOUNTER → 2021-01-10 | Outpatient (REF) | payer MEDICARE ==
[2021-01-10 16:44] LABS: BLOOD UREA NITROGEN 19 MG/DL (7-18); CALCIUM LEVEL 9.1 MG/DL (8.8-10.2); CARBON DIOXIDE LEVEL 28 MEQ/L (21-32); CHLORIDE LEVEL 105 MEQ/L (98-107); CREATININE FOR GFR 0.99 MG/DL (0.70-1.30); GLOMERULAR FILTRATION RATE > 60.0 (>42); GLUCOSE, FASTING 103 MG/DL (70-100); POTASSIUM SERUM 4.1 MEQ/L (3.5-5.1); SODIUM LEVEL 140 MEQ/L (136-145)
[2021-01-10 17:22] LABS: HEMOGLOBIN A1c 6.1 %
== END ==
LOC: M SFHCCLAY 11:55
PROVIDERS: ATTEND Family Medicine
DX: E11.9 Type 2 diabetes mellitus without complications (principal); I10 Essential (primary) hypertension; Z98.890 Other specified postprocedural states
CPT/HCPCS: 80048; 83036; G0463

== ENCOUNTER → 2021-06-07 | Outpatient (REF) | payer MEDICARE ==
[2021-06-07 16:44] LABS: ALBUMIN 3.8 GM/DL (3.2-5.2); ALT/SGPT 23 U/L (12-78); BILIRUBIN,TOTAL 0.7 MG/DL (0.2-1.0); BLOOD UREA NITROGEN 19 MG/DL (7-18); CALCIUM LEVEL 9.3 MG/DL (8.8-10.2); CARBON DIOXIDE LEVEL 33 MEQ/L (21-32); CHLORIDE LEVEL 104 MEQ/L (98-107); CREATININE FOR GFR 0.91 MG/DL (0.70-1.30); GLOMERULAR FILTRATION RATE > 60.0 (>42); GLUCOSE, FASTING 115 MG/DL (70-100); LIPASE 146 U/L (73-393); POTASSIUM SERUM 4.3 MEQ/L (3.5-5.1); SODIUM LEVEL 142 MEQ/L (136-145); TOTAL PROTEIN 6.9 GM/DL (6.4-8.2)
== END ==
LOC: M SFHCCLAY 11:31
PROVIDERS: ATTEND Family Medicine
DX: I83.91 Asymptomatic varicose veins of right lower extremity (principal); R10.12 Left upper quadrant pain
CPT/HCPCS: 80053; 83690; 85379; G0463

== ENCOUNTER → 2021-06-16 | Outpatient (CLI) | payer MEDICARE ==
[~2021-06-16] MED LIST changes: +GASTROGRAFIN SOLUTION 30ML (Q9963) As Ordered ONE; +ISOVUE-370 76% 100ML VIAL As Ordered ONE; +LOSA100T45 PO; -LOSA100T50 PO; -MONT10TA10 PO; +MONT10TA97 PO; +OMEP-173 PO; -OMEP-218 PO
== END ==
LOC: M RAD 08:45
PROVIDERS: ATTEND Family Medicine
DX: R10.12 Left upper quadrant pain (principal); K57.30 Diverticulosis of large intestine without perforation or abscess without bleeding; N28.89 Other specified disorders of kidney and ureter
CPT/HCPCS: 74177; Q9963; Q9967

== ENCOUNTER → 2021-08-09 | Outpatient (REF) | payer MEDICARE ==
[~2021-08-09] MED LIST changes: -GASTROGRAFIN SOLUTION 30ML (Q9963) As Ordered ONE; -ISOVUE-370 76% 100ML VIAL As Ordered ONE
[2021-08-10 13:00] LABS: HEMATOCRIT 47.5 % (42.0-52.0); HEMOGLOBIN 15.4 g/dl (13.5-17.5); MEAN CORPUSCULAR HEMOGLOBIN 30.6 pg (27.0-33.0); MEAN CORPUSCULAR HGB CONC 32.4 g/dl (32.0-36.5); MEAN CORPUSCULAR VOLUME 94.4 fl (80.0-96.0); PLATELET COUNT, AUTOMATED 224 10^3/uL (150-450); RED BLOOD COUNT 5.03 10^6/uL (4.30-6.10); WHITE BLOOD COUNT 6.4 10^3/uL (4.0-10.0)
[2021-08-10 13:23] LABS: APPEARANCE, URINE CLEAR (CLEAR); BACTERIA, URINE AUTO NEGATIVE (NEGATIVE); BILIRUBIN, URINE AUTO NEGATIVE (NEGATIVE); BLOOD, URINE BLOOD NEGATIVE (NEGATIVE); COLOR, URINE YELLOW (YELLOW); GLUCOSE, URINE (UA) AUTO 3+ mg/dL (NEGATIVE); KETONE, URINE AUTO TRACE mg/dL (NEGATIVE); LEUKOCYTE ESTERASE, URINE AUTO NEGATIVE (NEGATIVE); MUCUS, URINE SMALL (NEGATIVE); NITRITE, URINE AUTO NEGATIVE (NEGATIVE); PROTEIN, URINE AUTO NEGATIVE (NEGATIVE); RBC, URINE AUTO 0 /HPF (0-3); SPECIFIC GRAVITY URINE AUTO 1.036 (1.002-1.035); SQUAMOUS EPITHELIAL CELL UR AU 0 /HPF (0-6); UROBILINOGEN, URINE AUTO 0.2 mg/dL (0.0-2.0); WBC, URINE AUTO 0 /HPF (0-3)
[2021-08-10 13:25] LABS: HEMOGLOBIN A1c 6.2 %
[2021-08-10 13:41] LABS: MALB URINE SIEMENS 6.3 MG/L; MAU/CREAT RATIO 4.5 MCG/MG (0.0-30.0)
[2021-08-10 14:08] LABS: ALBUMIN 3.6 GM/DL (3.2-5.2); ALT/SGPT 17 U/L (12-78); BILIRUBIN,TOTAL 0.3 MG/DL (0.2-1.0); BLOOD UREA NITROGEN 15 MG/DL (7-18); CALCIUM LEVEL 9.2 MG/DL (8.8-10.2); CARBON DIOXIDE LEVEL 32 MEQ/L (21-32); CHLORIDE LEVEL 106 MEQ/L (98-107); CREATININE FOR GFR 0.99 MG/DL (0.70-1.30); GLOMERULAR FILTRATION RATE > 60.0 (>42); GLUCOSE, FASTING 112 MG/DL (70-100); SODIUM LEVEL 142 MEQ/L (136-145); TOTAL PROTEIN 6.2 GM/DL (6.4-8.2)
[2021-08-10 14:10] LABS: POTASSIUM SERUM 6.5 MEQ/L (3.5-5.1)
== END ==
LOC: M SFHCCLAY 14:00
PROVIDERS: ATTEND Family Medicine
DX: G44.321 Chronic post-traumatic headache, intractable (principal); E11.9 Type 2 diabetes mellitus without complications; I10 Essential (primary) hypertension; K21.9 Gastro-esophageal reflux disease without esophagitis; Z98.890 Other specified postprocedural states

== ENCOUNTER → 2021-08-11 | Outpatient (REF) | payer MEDICARE | LOC: M SFHCCLAY 09:26 | PROVIDERS: ATTEND Family Medicine | DX: E87.5 Hyperkalemia (principal) ==

== ENCOUNTER → 2021-10-25 | Outpatient (CLI) | payer MEDICARE ==
[~2021-10-25] MED LIST changes: +CLOP75TA2 PO
== END ==
LOC: M LABSMTC 11:17
PROVIDERS: ATTEND Anesthesiology
DX: Z01.818 Encounter for other preprocedural examination (principal); Z11.52 Encounter for screening for COVID-19

== ENCOUNTER 2021-10-30 08:55 | Day surgery (SDC) | payer MEDICARE ==
[~2021-10-30] VITALS: Ht 188 cm; Wt 89.7 kg
[~2021-10-30 08:55] MED LIST changes: +NS 1,000 ML IV ONE
[2021-10-30] MEDS ORDERED: propofoL 200 MG/20 ML VIAL As Ordered ONE (10:48)
[2021-10-30] MEDS ORDERED: LIDOCAINE 2% 100MG/5ML SDV (FOR ANES.) As Ordered ONE (11:02)
[2021-10-30 11:21] VITALS: BP 157/85
== END 2021-10-30 11:23 | disposition home or self-care (01) ==
LOC: M OPP 08:55
PROVIDERS: ATTEND Internal Medicine Gastroenterology
DX: K29.70 Gastritis, unspecified, without bleeding (principal); Z98.890 Other specified postprocedural states; R10.13 Epigastric pain; E11.9 Type 2 diabetes mellitus without complications; Z79.02 Long term (current) use of antithrombotics/antiplatelets; Z79.82 Long term (current) use of aspirin; Z79.84 Long term (current) use of oral hypoglycemic drugs; Z79.899 Other long term (current) drug therapy; Z91.018 Allergy to other foods; Z86.73 Personal history of transient ischemic attack (TIA), and cerebral infarction without residual deficits

== ENCOUNTER → 2022-04-10 | Outpatient (REF) | payer MEDICARE ==
[~2022-04-10] MED LIST changes: -NS 1,000 ML IV ONE
[2022-04-10 17:42] LABS: HEMOGLOBIN A1c 5.6 %
[2022-04-10 18:07] LABS: BLOOD UREA NITROGEN 18 MG/DL (7-18); CALCIUM LEVEL 9.5 MG/DL (8.8-10.2); CARBON DIOXIDE LEVEL 33 MEQ/L (21-32); CHLORIDE LEVEL 105 MEQ/L (98-107); CHOLESTEROL LEVEL 196 MG/DL (<200); CHOLESTEROL RISK RATIO 2.578 (<5); CREATININE FOR GFR 0.94 MG/DL (0.70-1.30); GLOMERULAR FILTRATION RATE > 60.0 (>42); GLUCOSE, FASTING 88 MG/DL (70-100); HDL CHOLESTEROL 76 MG/DL (>40); LDL CHOLESTEROL 99 MG/DL (<100); NON-HDL-C 120 MG/DL; POTASSIUM SERUM 4.5 MEQ/L (3.5-5.1); SODIUM LEVEL 139 MEQ/L (136-145); TRIGLYCERIDES LEVEL 105 MG/DL (<150)
== END ==
LOC: M SFHCCLAY 11:39
PROVIDERS: ATTEND Family Medicine
DX: E11.9 Type 2 diabetes mellitus without complications (principal); Z86.73 Personal history of transient ischemic attack (TIA), and cerebral infarction without residual deficits

== ENCOUNTER → 2022-07-11 | Outpatient (CLI) | payer MEDICARE | LOC: M CLY 11:15 | PROVIDERS: ATTEND Family Medicine | DX: R09.1 Pleurisy (principal); M25.511 Pain in right shoulder; R07.81 Pleurodynia; G89.29 Other chronic pain; M19.011 Primary osteoarthritis, right shoulder ==

== ENCOUNTER → 2022-09-19 | Outpatient (CLI) | payer MEDICARE | LOC: M SOG 10:45 | PROVIDERS: ATTEND Orthopaedic Surgery | DX: M54.2 Cervicalgia (principal); M47.812 Spondylosis without myelopathy or radiculopathy, cervical region; M47.814 Spondylosis without myelopathy or radiculopathy, thoracic region; M85.88 Other specified disorders of bone density and structure, other site ==

== ENCOUNTER → 2022-11-16 | Outpatient (REF) | payer MEDICARE ==
[~2022-11-16] MED LIST changes: -LOSA100T45 PO; +LOSA100T46 PO
[2022-11-16 12:05] LABS: FREE T4 1.02 NG/DL (0.89-1.76); THYROID STIMULATING HORMONE 6.276 uIU/ML (0.55-4.78)
[2022-11-16 12:06] LABS: ALBUMIN 3.3 G/DL (3.2-5.2); ALKALINE PHOSPHATASE 62 U/L (46-116); ALT/SGPT 17 U/L (7.0-40); AST/SGOT 14 U/L (<34); BILIRUBIN,TOTAL 0.6 MG/DL (0.3-1.2); BLOOD UREA NITROGEN 17 MG/DL (9-23); CALCIUM LEVEL 8.8 MG/DL (8.3-10.6); CARBON DIOXIDE LEVEL 30 MMOL/L (20-31); CHLORIDE LEVEL 104 MMOL/L (98-107); CREATININE FOR GFR 1.02 MG/DL (0.70-1.30); GLOMERULAR FILTRATION RATE > 60.0 (>42); GLUCOSE, FASTING 179 MG/DL (74-106); MAGNESIUM LEVEL 1.9 MG/DL (1.8-2.4); POTASSIUM SERUM 4.1 MMOL/L (3.5-5.1); SODIUM LEVEL 141 MMOL/L (136-145)
== END ==
LOC: M SFHCCLAY 08:51
PROVIDERS: ATTEND Family Medicine
DX: E11.9 Type 2 diabetes mellitus without complications (principal)

== ENCOUNTER → 2022-11-16 | Outpatient (REF) | payer MEDICARE ==
[2022-11-16 12:01] LABS: BLOOD UREA NITROGEN 18 MG/DL (9-23); CALCIUM LEVEL 9.2 MG/DL (8.3-10.6); CARBON DIOXIDE LEVEL 32 MMOL/L (20-31); CHLORIDE LEVEL 104 MMOL/L (98-107); CREATININE FOR GFR 0.98 MG/DL (0.70-1.30); GLOMERULAR FILTRATION RATE > 60.0 (>42); GLUCOSE, FASTING 178 MG/DL (74-106); MAGNESIUM LEVEL 1.9 MG/DL (1.8-2.4); SODIUM LEVEL 141 MMOL/L (136-145)
== END ==
LOC: M LABDRAWC 11:14
PROVIDERS: ATTEND Physician Assistant
DX: I25.5 Ischemic cardiomyopathy (principal)

== ENCOUNTER → 2022-11-22 | Outpatient (REF) | payer MEDICARE ==
[2022-11-22 17:59] LABS: FOLLICLE STIMULATING HORMONE 10.9 mIU/ML (1.4-18.1); LUTEINIZING HORMONE 6.6 mIU/ML (3.1-34.6)
[2022-11-22 18:00] LABS: PROLACTIN 6.47 NG/ML (2.1-17.7)
[2022-11-24 11:10] LABS: TESTOSTERONE FREE (DIRECT) 3.3 pg/mL (6.6-18.1)
== END ==
LOC: M SFHCCLAY 15:07
PROVIDERS: ATTEND Family Medicine
DX: R79.89 Other specified abnormal findings of blood chemistry (principal); R23.2 Flushing

== ENCOUNTER → 2023-02-15 | Outpatient (REF) | payer MEDICARE ==
[2023-02-15 12:12] LABS: THYROID STIMULATING HORMONE 7.454 uIU/ML (0.55-4.78)
[2023-02-15 12:13] LABS: FREE T4 1.14 NG/DL (0.89-1.76)
== END ==
LOC: M LABDRAWC 11:08
PROVIDERS: ATTEND Internal Medicine Endocrinology, Diabetes & Metabolism
DX: E29.1 Testicular hypofunction (principal); R94.6 Abnormal results of thyroid function studies; I25.5 Ischemic cardiomyopathy; I48.0 Paroxysmal atrial fibrillation; I25.10 Atherosclerotic heart disease of native coronary artery without angina pectoris; E78.00 Pure hypercholesterolemia, unspecified

== ENCOUNTER → 2023-02-15 | Outpatient (REF) | payer MEDICARE ==
[2023-02-15 11:37] LABS: HEMATOCRIT 45.8 % (42.0-52.0); HEMOGLOBIN 14.9 g/dl (13.5-17.5); MEAN CORPUSCULAR HEMOGLOBIN 30.8 pg (27.0-33.0); MEAN CORPUSCULAR HGB CONC 32.5 g/dl (32.0-36.5); MEAN CORPUSCULAR VOLUME 94.8 fl (80.0-96.0); PLATELET COUNT, AUTOMATED 246 10^3/uL (150-450); RED BLOOD COUNT 4.83 10^6/uL (4.30-6.10); WHITE BLOOD COUNT 7.7 10^3/uL (4.0-10.0)
[2023-02-15 12:12] LABS: ALBUMIN 3.7 G/DL (3.2-5.2); ALKALINE PHOSPHATASE 70 U/L (46-116); ALT/SGPT 36 U/L (7.0-40); AST/SGOT 20 U/L (<34); BILIRUBIN,TOTAL 0.9 MG/DL (0.3-1.2); BLOOD UREA NITROGEN 21 MG/DL (9-23); CALCIUM LEVEL 9.4 MG/DL (8.3-10.6); CARBON DIOXIDE LEVEL 32 MMOL/L (20-31); CHLORIDE LEVEL 103 MMOL/L (98-107); CHOLESTEROL LEVEL 178 MG/DL (<200); CHOLESTEROL RISK RATIO 2.72 (<5); CREATININE FOR GFR 1.03 MG/DL (0.70-1.30); GLOMERULAR FILTRATION RATE > 60.0 (>42); GLUCOSE, FASTING 151 MG/DL (74-106); HDL CHOLESTEROL 65.3 MG/DL (>40); LDL CHOLESTEROL 93.9 MG/DL (<100); MAGNESIUM LEVEL 1.8 MG/DL (1.8-2.4); NON-HDL-C 112.7 MG/DL; POTASSIUM SERUM 4.2 MMOL/L (3.5-5.1); SODIUM LEVEL 143 MMOL/L (136-145); TOTAL PROTEIN 6.4 G/DL (5.7-8.2); TRIGLYCERIDES LEVEL 94 MG/DL (<150)
== END ==
LOC: M LABDRAWC 11:10
PROVIDERS: ATTEND Physician Assistant
DX: I25.5 Ischemic cardiomyopathy (principal); I48.0 Paroxysmal atrial fibrillation; I25.10 Atherosclerotic heart disease of native coronary artery without angina pectoris; E78.00 Pure hypercholesterolemia, unspecified

== ENCOUNTER → 2023-02-19 | Outpatient (CLI) | payer MEDICARE | LOC: M RAD 11:40 | PROVIDERS: ATTEND Surgery Vascular Surgery | DX: I65.23 Occlusion and stenosis of bilateral carotid arteries (principal) ==

== ENCOUNTER → 2023-05-22 | Outpatient (CLI) | payer MEDICARE | LOC: M CLY 08:51 | PROVIDERS: ATTEND Family Medicine | DX: R07.81 Pleurodynia (principal) ==

== ENCOUNTER → 2023-05-22 | Outpatient (REF) | payer MEDICARE ==
[2023-05-22 12:10] LABS: BLOOD UREA NITROGEN 21 MG/DL (9-23); CARBON DIOXIDE LEVEL 32 MMOL/L (20-31); CHLORIDE LEVEL 104 MMOL/L (98-107); CREATININE FOR GFR 1.07 MG/DL (0.70-1.30); GLOMERULAR FILTRATION RATE > 60.0 (>42); GLUCOSE, FASTING 173 MG/DL (74-106); POTASSIUM SERUM 4.4 MMOL/L (3.5-5.1); SODIUM LEVEL 140 MMOL/L (136-145)
[2023-05-22 12:13] LABS: FREE T4 1.09 NG/DL (0.89-1.76); THYROID STIMULATING HORMONE 7.955 uIU/ML (0.55-4.78)
[2023-05-22 12:37] LABS: HEMOGLOBIN A1c 7.2 % (4.0-6.0)
== END ==
LOC: M SFHCCLAY 08:32
PROVIDERS: ATTEND Family Medicine
DX: E03.9 Hypothyroidism, unspecified (principal); Z95.5 Presence of coronary angioplasty implant and graft; E11.9 Type 2 diabetes mellitus without complications

== ENCOUNTER → 2023-06-06 | Outpatient (CLI) | payer MEDICARE | LOC: M PLAIMG 11:16 | PROVIDERS: ATTEND Family Medicine | DX: R22.2 Localized swelling, mass and lump, trunk (principal); J98.4 Other disorders of lung ==

== ENCOUNTER → 2023-06-26 | Outpatient (REF) | payer MEDICARE | LOC: M SFHCDERM 13:53 | PROVIDERS: ATTEND Physician Assistant | DX: L82.1 Other seborrheic keratosis (principal) ==

== ENCOUNTER → 2023-08-23 | Outpatient (REF) | payer MEDICARE ==
[2023-08-23 18:02] LABS: ALBUMIN 3.6 G/DL (3.2-5.2); ALKALINE PHOSPHATASE 57 U/L (46-116); ALT/SGPT 39 U/L (7.0-40); AST/SGOT 26 U/L (<34); BILIRUBIN,TOTAL 0.5 MG/DL (0.3-1.2); BLOOD UREA NITROGEN 19 MG/DL (9-23); CALCIUM LEVEL 8.6 MG/DL (8.3-10.6); CARBON DIOXIDE LEVEL 31 MMOL/L (20-31); CHLORIDE LEVEL 103 MMOL/L (98-107); CREATININE FOR GFR 1.02 MG/DL (0.70-1.30); GLOMERULAR FILTRATION RATE > 60.0 (>42); GLUCOSE, FASTING 250 MG/DL (74-106); MAGNESIUM LEVEL 1.9 MG/DL (1.8-2.4); SODIUM LEVEL 139 MMOL/L (136-145); TOTAL PROTEIN 6.1 G/DL (5.7-8.2)
== END ==
LOC: M LABDRAWC 16:54
PROVIDERS: ATTEND Physician Assistant
DX: I25.10 Atherosclerotic heart disease of native coronary artery without angina pectoris (principal); I48.0 Paroxysmal atrial fibrillation; I25.5 Ischemic cardiomyopathy

== ENCOUNTER → 2023-09-18 | Outpatient (REF) | payer MEDICARE ==
[2023-09-18 18:04] LABS: BASO # 0.1 10^3/uL (0.0-0.2); BASO % 1.2 % (0.0-1.0); EOS # 0.8 10^3/uL (0.0-0.5); EOS % 10.6 % (0.0-3.0); HEMATOCRIT 47.8 % (42.0-52.0); HEMOGLOBIN 15.8 g/dl (13.5-17.5); LYMPH # 2.6 10^3/uL (1.5-5.0); LYMPH % 33.8 % (24.0-44.0); MEAN CORPUSCULAR HEMOGLOBIN 31.6 pg (27.0-33.0); MEAN CORPUSCULAR HGB CONC 33.1 g/dl (32.0-36.5); MEAN CORPUSCULAR VOLUME 95.6 fl (80.0-96.0); MONO # 0.4 10^3/uL (0.0-0.8); MONO % 5.7 % (2.0-8.0); NEUTROPHILS # 3.8 10^3/uL (1.5-8.5); NEUTROPHILS % 48.6 % (36.0-66.0); PLATELET COUNT, AUTOMATED 197 10^3/uL (150-450); WHITE BLOOD COUNT 7.8 10^3/uL (4.0-10.0)
[2023-09-18 18:43] LABS: FREE T4 1.12 NG/DL (0.89-1.76)
[2023-09-18 18:46] LABS: HEMOGLOBIN A1c 7.9 % (4.0-6.0)
[2023-09-18 18:47] LABS: ALBUMIN 3.8 G/DL (3.2-5.2); ALKALINE PHOSPHATASE 50 U/L (46-116); ALT/SGPT 58 U/L (7.0-40); AST/SGOT 35 U/L (<34); BILIRUBIN,TOTAL 0.5 MG/DL (0.3-1.2); BLOOD UREA NITROGEN 18 MG/DL (9-23); CALCIUM LEVEL 8.9 MG/DL (8.3-10.6); CARBON DIOXIDE LEVEL 33 MMOL/L (20-31); CHLORIDE LEVEL 103 MMOL/L (98-107); CHOLESTEROL LEVEL 144 MG/DL (<200); CHOLESTEROL RISK RATIO 2.43 (<5); CREATININE FOR GFR 1.09 MG/DL (0.70-1.30); GLOMERULAR FILTRATION RATE > 60.0 (>42); GLUCOSE, FASTING 186 MG/DL (74-106); HDL CHOLESTEROL 59.2 MG/DL (>40); LDL CHOLESTEROL 66.8 MG/DL (<100); NON-HDL-C 84.8 MG/DL; POTASSIUM SERUM 4.9 MMOL/L (3.5-5.1); SODIUM LEVEL 139 MMOL/L (136-145); TOTAL PROTEIN 6.2 G/DL (5.7-8.2); TRIGLYCERIDES LEVEL 90 MG/DL (<150)
== END ==
LOC: M SFHCCLAY 10:09
PROVIDERS: ATTEND Family Medicine
DX: E03.9 Hypothyroidism, unspecified (principal); E11.9 Type 2 diabetes mellitus without complications; I65.23 Occlusion and stenosis of bilateral carotid arteries; Z86.73 Personal history of transient ischemic attack (TIA), and cerebral infarction without residual deficits; I50.20 Unspecified systolic (congestive) heart failure; Z12.5 Encounter for screening for malignant neoplasm of prostate; Z91.018 Allergy to other foods; Z80.1 Family history of malignant neoplasm of trachea, bronchus and lung; Z80.3 Family history of malignant neoplasm of breast; Z79.01 Long term (current) use of anticoagulants; Z79.84 Long term (current) use of oral hypoglycemic drugs; Z79.890 Hormone replacement therapy
CPT/HCPCS: 80053; 80061; 83036; 84439; 84443; 85025; G0103

== ENCOUNTER 2023-11-19 16:04 | Emergency (ER) | payer MEDICARE ==
[~2023-11-19] VITALS: Ht 188 cm; Wt 86.3 kg
[2023-11-19 16:04] VITALS: TEMP 97.9
[~2023-11-19 16:04] MED LIST changes: -GLIM1TAB4 PO; +GLIM1TAB84 PO
[2023-11-19] MEDS ORDERED: ISOVUE-370 76% 100ML VIAL As Ordered ONE (17:00)
[2023-11-19 17:07] LABS: BASO # 0.1 10^3/uL (0.0-0.2); BASO % 1.1 % (0.0-1.0); EOS # 0.5 10^3/uL (0.0-0.5); EOS % 7.1 % (0.0-3.0); HEMATOCRIT 42.9 % (42.0-52.0); HEMOGLOBIN 14.2 g/dl (13.5-17.5); LYMPH # 2.2 10^3/uL (1.5-5.0); LYMPH % 29.2 % (24.0-44.0); MEAN CORPUSCULAR HEMOGLOBIN 31.6 pg (27.0-33.0); MEAN CORPUSCULAR HGB CONC 33.1 g/dl (32.0-36.5); MEAN CORPUSCULAR VOLUME 95.3 fl (80.0-96.0); MONO # 0.5 10^3/uL (0.0-0.8); MONO % 6.6 % (2.0-8.0); NEUTROPHILS # 4.2 10^3/uL (1.5-8.5); NEUTROPHILS % 55.9 % (36.0-66.0); PLATELET COUNT, AUTOMATED 228 10^3/uL (150-450); WHITE BLOOD COUNT 7.5 10^3/uL (4.0-10.0)
[2023-11-19 17:27] LABS: INR 1.44; PARTIAL THROMBOPLASTIN TIME 26.7 SECONDS (24.8-34.2); PROTHROMBIN TIME 17.1 SECONDS (12.5-14.5)
[2023-11-19 17:38] LABS: BLOOD UREA NITROGEN 22 MG/DL (9-23); CALCIUM LEVEL 8.9 MG/DL (8.3-10.6); CARBON DIOXIDE LEVEL 30 MMOL/L (20-31); CHLORIDE LEVEL 103 MMOL/L (98-107); GLOMERULAR FILTRATION RATE > 60.0 (>35); GLUCOSE, FASTING 153 MG/DL (74-106); POTASSIUM SERUM 4.3 MMOL/L (3.5-5.1); SODIUM LEVEL 137 MMOL/L (136-145)
[2023-11-19 18:45] VITALS: BP 116/61
[2023-11-19 19:01] VITALS: O2SAT 100
[2023-11-19] MEDS ORDERED: ELIQ5TAB PO (19:04)
[2023-11-19] MEDS ORDERED: ENTR1TAB PO (19:04)
[2023-11-19] MEDS ORDERED: ROSU40TA63 PO (19:04)
[2023-11-19] MEDS ORDERED: CETI-24 PO (19:04)
[2023-11-19] MEDS ORDERED: EZET10TA21 PO (19:04)
[2023-11-19] MEDS ORDERED: LEVO25TA5 PO (19:04)
[2023-11-19] MEDS ORDERED: FARX1TAB5 PO (19:04)
[2023-11-19] MEDS ORDERED: METO1TAB32 PO (19:04)
[2023-11-19] MEDS ORDERED: AMIO200T49 PO (19:04)
[2023-11-19] MEDS ORDERED: SPIR-10 PO (19:04)
[2023-11-19] MEDS ORDERED: NITR0.4S14 SL (19:04)
[2023-11-19] MEDS ORDERED: FLON1SPR NARES (19:06)
[2023-11-19] MEDS ORDERED: ONETAB9 PO (19:09)
[2023-11-19] MEDS ORDERED: HOME MED LIST COMPLETE! XX SCH (19:15)
== END 2023-11-19 19:09 | disposition home or self-care (01) ==
LOC: M ED 16:04
DX: G44.219 Episodic tension-type headache, not intractable (principal); E11.9 Type 2 diabetes mellitus without complications; I10 Essential (primary) hypertension; J45.909 Unspecified asthma, uncomplicated; E78.5 Hyperlipidemia, unspecified; Z86.69 Personal history of other diseases of the nervous system and sense organs; Z86.79 Personal history of other diseases of the circulatory system; Z79.899 Other long term (current) drug therapy; Z91.018 Allergy to other foods; R10.9 Unspecified abdominal pain
CPT/HCPCS: 70450; 70496; 70498; 71045; 80047; 80048; 85025; 85610; 85730; 93005; 93041; 94760; 99285; Q9967

== ENCOUNTER → 2023-12-02 | Outpatient (CLI) | payer MEDICARE ==
[~2023-12-02] MED LIST changes: +AMIO200T49 PO; +CETI-24 PO; +ELIQ5TAB PO; +ENTR1TAB PO; +EZET10TA21 PO; +FARX1TAB5 PO; +FLON1SPR NARES; +LEVO25TA5 PO; +METO1TAB32 PO; +NITR0.4S14 SL; +ONETAB9 PO; +ROSU40TA63 PO; +SPIR-10 PO
== END ==
LOC: M RAD 13:21
PROVIDERS: ATTEND Physician Assistant
DX: I65.22 Occlusion and stenosis of left carotid artery (principal)

== ENCOUNTER 2023-12-06 06:02 | Day surgery (SDC) | payer MEDICARE ==
[~2023-12-06] VITALS: Ht 188 cm; Wt 88.5 kg
[~2023-12-06 06:02] MED LIST changes: +CelecoXIB 400 MG CAP PO ONE
[2023-12-06] MEDS ORDERED: fentaNYL 100 MCG/2 ML INJECTION As Ordered ONE (06:58)
[2023-12-06] MEDS ORDERED: LIDOCAINE 2% 100MG/5ML SDV (FOR ANES.) As Ordered ONE (06:59)
[2023-12-06] MEDS ORDERED: ROCURONIUM BROMIDE 50MG/5ML VIAL As Ordered ONE (07:04)
[2023-12-06] MEDS ORDERED: propofoL 200 MG/20 ML VIAL As Ordered ONE (07:06)
[2023-12-06] MEDS ORDERED: GLUCOSE 4 GM CHEW PO PRN (07:20)
[2023-12-06] MEDS ORDERED: DEXTROSE 50% 50ML SYRINGE IV PRN (07:20)
[2023-12-06] MEDS ORDERED: LR 1,000 ML IV SCH ×2 (07:20→08:40)
[2023-12-06] MEDS ORDERED: GLUCAGON INJ 1MG VIAL SC PRN (07:20)
[2023-12-06] MEDS ORDERED: ETOMIDATE INJ 20MG/10ML VIAL As Ordered ONE (07:21)
[2023-12-06] MEDS ORDERED: SUGAMMADEX SODIUM 500 MG/5 ML VIAL (BRIDION) As Ordered ONE (07:23)
[2023-12-06] MEDS ORDERED: ONDANSETRON 4MG 2ML VIAL As Ordered ONE (07:23)
[2023-12-06] MEDS: ceFAZolin SOD 2 GM in IV 1 EA IV ONE (07:40)
[2023-12-06] MEDS: metroNIDAZOLE 500 MG in IV 1 EA IV ONE (07:55)
[2023-12-06] MEDS: LIDOCAINE W/EPINEPHRINE 1% 20ML VIAL As Ordered ONE (08:11)
[2023-12-06] MEDS ORDERED: ePHEDrine SULFATE 25 MG/5 ML(5MG/ML) SYRINGE As Ordered ONE (08:19)
[2023-12-06] MEDS ORDERED: ACETAMINOPHEN 1000MG 100ML IV BAG As Ordered ONE (08:22)
[2023-12-06] MEDS ORDERED: HYDROMORPHONE HCL 0.5 MG/ 0.5 ML SYRINGE IV PRN (08:40)
[2023-12-06] MEDS ORDERED: ONDANSETRON 4MG 2ML VIAL IV PRN (08:40)
[2023-12-06] MEDS ORDERED: fentaNYL 100 MCG/2 ML INJECTION IV PRN (08:40)
[2023-12-06] MEDS ORDERED: oxyCODONE 5MG TAB PO PRN (08:40)
[2023-12-06] MEDS: INSULIN LISPRO (NovoLOG) PER UNIT SC PRN (09:29)
[2023-12-06 09:56] VITALS: BP 143/70; TEMP 97.7; O2SAT 97
== END 2023-12-06 10:02 | disposition home or self-care (01) ==
LOC: M SDC 06:02
PROVIDERS: ATTEND Surgery
DX: K60.3 Anal fistula (principal); I10 Essential (primary) hypertension; E03.9 Hypothyroidism, unspecified; E11.9 Type 2 diabetes mellitus without complications; E78.5 Hyperlipidemia, unspecified; I48.91 Unspecified atrial fibrillation; I25.2 Old myocardial infarction; Z98.61 Coronary angioplasty status; Z79.01 Long term (current) use of anticoagulants; Z79.02 Long term (current) use of antithrombotics/antiplatelets; Z86.73 Personal history of transient ischemic attack (TIA), and cerebral infarction without residual deficits; Z79.82 Long term (current) use of aspirin; Z79.899 Other long term (current) drug therapy; Z91.018 Allergy to other foods
CPT/HCPCS: 46040; J0131; J0690; J1100; J1815; J1836; J2405; J3010

== ENCOUNTER → 2024-01-16 | Outpatient (REF) | payer MEDICARE ==
[~2024-01-16] MED LIST changes: -CelecoXIB 400 MG CAP PO ONE
[2024-01-16 12:06] LABS: BASO # 0.1 10^3/uL (0.0-0.2); BASO % 1.3 % (0.0-1.0); EOS # 0.6 10^3/uL (0.0-0.5); EOS % 7.5 % (0.0-3.0); HEMATOCRIT 45.4 % (42.0-52.0); HEMOGLOBIN 14.8 g/dl (13.5-17.5); LYMPH % 37.7 % (24.0-44.0); MEAN CORPUSCULAR HEMOGLOBIN 31.1 pg (27.0-33.0); MEAN CORPUSCULAR HGB CONC 32.6 g/dl (32.0-36.5); MEAN CORPUSCULAR VOLUME 95.4 fl (80.0-96.0); MONO # 0.5 10^3/uL (0.0-0.8); MONO % 6.4 % (2.0-8.0); NEUTROPHILS # 3.7 10^3/uL (1.5-8.5); NEUTROPHILS % 46.8 % (36.0-66.0); PLATELET COUNT, AUTOMATED 208 10^3/uL (150-450); RED BLOOD COUNT 4.76 10^6/uL (4.30-6.10)
[2024-01-16 12:20] LABS: HEMOGLOBIN A1c 7.3 % (4.0-6.0)
[2024-01-16 12:34] LABS: BLOOD UREA NITROGEN 21 MG/DL (9-23); CALCIUM LEVEL 9.6 MG/DL (8.3-10.6); CARBON DIOXIDE LEVEL 34 MMOL/L (20-31); CHLORIDE LEVEL 105 MMOL/L (98-107); GLOMERULAR FILTRATION RATE > 60.0 (>35); GLUCOSE, FASTING 151 MG/DL (74-106); POTASSIUM SERUM 4.5 MMOL/L (3.5-5.1); SODIUM LEVEL 142 MMOL/L (136-145)
== END ==
LOC: M SFHCCLAY 09:19
PROVIDERS: ATTEND Family Medicine
DX: E11.9 Type 2 diabetes mellitus without complications (principal); I65.23 Occlusion and stenosis of bilateral carotid arteries; I50.20 Unspecified systolic (congestive) heart failure; E03.9 Hypothyroidism, unspecified; I11.0 Hypertensive heart disease with heart failure; Z86.73 Personal history of transient ischemic attack (TIA), and cerebral infarction without residual deficits

== ENCOUNTER → 2024-01-28 | Outpatient (REF) | payer MEDICARE ==
[2024-01-28 11:45] LABS: HEMATOCRIT 43.1 % (42.0-52.0); HEMOGLOBIN 14.2 g/dl (13.5-17.5); MEAN CORPUSCULAR HEMOGLOBIN 31.8 pg (27.0-33.0); MEAN CORPUSCULAR HGB CONC 32.9 g/dl (32.0-36.5); MEAN CORPUSCULAR VOLUME 96.4 fl (80.0-96.0); PLATELET COUNT, AUTOMATED 209 10^3/uL (150-450); RED BLOOD COUNT 4.47 10^6/uL (4.30-6.10)
[2024-01-28 11:47] LABS: ALBUMIN 3.6 G/DL (3.2-5.2); ALKALINE PHOSPHATASE 41 U/L (46-116); ALT/SGPT 32 U/L (7.0-40); AST/SGOT 22 U/L (<34); BILIRUBIN,TOTAL 0.6 MG/DL (0.3-1.2); BLOOD UREA NITROGEN 23 MG/DL (9-23); CALCIUM LEVEL 8.7 MG/DL (8.3-10.6); CARBON DIOXIDE LEVEL 31 MMOL/L (20-31); CHLORIDE LEVEL 105 MMOL/L (98-107); CHOLESTEROL LEVEL 132 MG/DL (<200); CHOLESTEROL RISK RATIO 2.36 (<5); CREATININE FOR GFR 0.97 MG/DL (0.70-1.30); GLOMERULAR FILTRATION RATE > 60.0 (>35); GLUCOSE, FASTING 166 MG/DL (74-106); HDL CHOLESTEROL 55.8 MG/DL (>40); LDL CHOLESTEROL 58.4 MG/DL (<100); MAGNESIUM LEVEL 1.7 MG/DL (1.8-2.4); NON-HDL-C 76.2 MG/DL; POTASSIUM SERUM 4.4 MMOL/L (3.5-5.1); SODIUM LEVEL 140 MMOL/L (136-145); TOTAL PROTEIN 5.8 G/DL (5.7-8.2); TRIGLYCERIDES LEVEL 89 MG/DL (<150)
== END ==
LOC: M LABDRAWC 10:55
PROVIDERS: ATTEND Physician Assistant
DX: I25.10 Atherosclerotic heart disease of native coronary artery without angina pectoris (principal); I48.0 Paroxysmal atrial fibrillation; E78.00 Pure hypercholesterolemia, unspecified; I50.42 Chronic combined systolic (congestive) and diastolic (congestive) heart failure

== ENCOUNTER → 2024-02-04 | Outpatient (CLI) | payer MEDICARE | LOC: M EKG 13:33 | PROVIDERS: ATTEND Physician Assistant | DX: R55 Syncope and collapse (principal) ==

== ENCOUNTER → 2024-02-27 | Outpatient (REF) | payer MEDICARE ==
[~2024-02-27] MED LIST changes: -ROSU40TA63 PO; +ROSU40TA81 PO
== END ==
LOC: M LAB REF 17:24
PROVIDERS: ATTEND Surgery
DX: D03.59 Melanoma in situ of other part of trunk (principal); L72.0 Epidermal cyst; D49.2 Neoplasm of unspecified behavior of bone, soft tissue, and skin; L57.0 Actinic keratosis

== ENCOUNTER → 2024-03-05 | Outpatient (CLI) | payer MEDICARE ==
[2024-03-05 12:05] LABS: HEMATOCRIT 40.7 % (42.0-52.0); HEMOGLOBIN 13.3 g/dl (13.5-17.5); MEAN CORPUSCULAR HGB CONC 32.7 g/dl (32.0-36.5); MEAN CORPUSCULAR VOLUME 98.1 fl (80.0-96.0); PLATELET COUNT, AUTOMATED 201 10^3/uL (150-450); RED BLOOD COUNT 4.15 10^6/uL (4.30-6.10); WHITE BLOOD COUNT 6.5 10^3/uL (4.0-10.0)
[2024-03-05 12:13] LABS: ALBUMIN 3.4 G/DL (3.2-5.2); ALKALINE PHOSPHATASE 43 U/L (46-116); ALT/SGPT 37 U/L (7.0-40); AST/SGOT 17 U/L (<34); BILIRUBIN,TOTAL 0.6 MG/DL (0.3-1.2); BLOOD UREA NITROGEN 19 MG/DL (9-23); CALCIUM LEVEL 9.1 MG/DL (8.3-10.6); CARBON DIOXIDE LEVEL 34 MMOL/L (20-31); CHLORIDE LEVEL 108 MMOL/L (98-107); CHOLESTEROL LEVEL 143 MG/DL (<200); CHOLESTEROL RISK RATIO 2.35 (<5); CREATININE FOR GFR 1.05 MG/DL (0.70-1.30); GLOMERULAR FILTRATION RATE > 60.0 (>35); GLUCOSE, FASTING 150 MG/DL (74-106); HDL CHOLESTEROL 60.6 MG/DL (>40); LDL CHOLESTEROL 67.8 MG/DL (<100); MAGNESIUM LEVEL 1.7 MG/DL (1.8-2.4); NON-HDL-C 82.4 MG/DL; POTASSIUM SERUM 4.3 MMOL/L (3.5-5.1); SODIUM LEVEL 143 MMOL/L (136-145); TOTAL PROTEIN 5.9 G/DL (5.7-8.2); TRIGLYCERIDES LEVEL 73 MG/DL (<150)
== END ==
LOC: M CLY 08:35
PROVIDERS: ATTEND Physician Assistant
DX: I25.10 Atherosclerotic heart disease of native coronary artery without angina pectoris (principal); I48.0 Paroxysmal atrial fibrillation; I25.5 Ischemic cardiomyopathy; E78.00 Pure hypercholesterolemia, unspecified; I50.42 Chronic combined systolic (congestive) and diastolic (congestive) heart failure

== ENCOUNTER → 2024-05-20 | Outpatient (REF) | payer MEDICARE ==
[2024-05-20 11:28] LABS: HEMATOCRIT 42.5 % (42.0-52.0); HEMOGLOBIN 14.2 g/dl (13.5-17.5); MEAN CORPUSCULAR HEMOGLOBIN 32.1 pg (27.0-33.0); MEAN CORPUSCULAR HGB CONC 33.4 g/dl (32.0-36.5); MEAN CORPUSCULAR VOLUME 96.2 fl (80.0-96.0); PLATELET COUNT, AUTOMATED 209 10^3/uL (150-450); RED BLOOD COUNT 4.42 10^6/uL (4.30-6.10); WHITE BLOOD COUNT 6.7 10^3/uL (4.0-10.0)
[2024-05-20 11:33] LABS: ALBUMIN 3.4 G/DL (3.2-5.2); ALKALINE PHOSPHATASE 46 U/L (40-129); ALT/SGPT 30 U/L (7.0-40); AST/SGOT 22 U/L (<34); BILIRUBIN,TOTAL 0.4 MG/DL (0.3-1.2); BLOOD UREA NITROGEN 21 MG/DL (9-23); CALCIUM LEVEL 9.6 MG/DL (8.3-10.6); CARBON DIOXIDE LEVEL 30 MMOL/L (20-31); CHLORIDE LEVEL 105 MMOL/L (98-107); CHOLESTEROL LEVEL 147 MG/DL (<200); CHOLESTEROL RISK RATIO 2.53 (<5); GLOMERULAR FILTRATION RATE > 60.0 (>35); GLUCOSE, FASTING 145 MG/DL (74-106); HDL CHOLESTEROL 58.1 MG/DL (>40); LDL CHOLESTEROL 70.1 MG/DL (<100); NON-HDL-C 88.9 MG/DL; POTASSIUM SERUM 4.2 MMOL/L (3.5-5.1); SODIUM LEVEL 141 MMOL/L (136-145); TOTAL PROTEIN 6.1 G/DL (5.7-8.2); TRIGLYCERIDES LEVEL 94 MG/DL (<150)
[2024-05-20 11:34] LABS: FREE T4 1.16 NG/DL (0.89-1.76); THYROID STIMULATING HORMONE 6.145 uIU/ML (0.55-4.78)
[2024-05-20 11:46] LABS: HEMOGLOBIN A1c 6.6 % (4.0-6.0)
== END ==
LOC: M SFHCCLAY 07:32
PROVIDERS: ATTEND Family Medicine
DX: E11.9 Type 2 diabetes mellitus without complications (principal); G45.9 Transient cerebral ischemic attack, unspecified; E03.9 Hypothyroidism, unspecified; I48.0 Paroxysmal atrial fibrillation

== ENCOUNTER → 2024-06-12 | Outpatient (REF) | payer MEDICARE ==
[2024-06-12 18:14] LABS: BLOOD UREA NITROGEN 19 MG/DL (9-23); CALCIUM LEVEL 9.9 MG/DL (8.3-10.6); CARBON DIOXIDE LEVEL 31 MMOL/L (20-31); CHLORIDE LEVEL 103 MMOL/L (98-107); CREATININE FOR GFR 1.05 MG/DL (0.70-1.30); GLOMERULAR FILTRATION RATE > 60.0 (>35); GLUCOSE, FASTING 184 MG/DL (74-106); MAGNESIUM LEVEL 1.9 MG/DL (1.8-2.4); POTASSIUM SERUM 4.3 MMOL/L (3.5-5.1); SODIUM LEVEL 141 MMOL/L (136-145)
== END ==
LOC: M LABDRAWC 16:40
PROVIDERS: ATTEND Physician Assistant
DX: I50.42 Chronic combined systolic (congestive) and diastolic (congestive) heart failure (principal)

== ENCOUNTER → 2024-07-15 | Outpatient (CLI) | payer MEDICARE | LOC: M RAD 12:25 | PROVIDERS: ATTEND Physician Assistant | DX: I65.22 Occlusion and stenosis of left carotid artery (principal) ==

== ENCOUNTER → 2024-08-20 | Outpatient (REF) | payer MEDICARE ==
[2024-08-20 17:39] LABS: ALBUMIN 3.5 G/DL (3.2-5.2); ALKALINE PHOSPHATASE 40 U/L (40-129); ALT/SGPT 27 U/L (7.0-40); AST/SGOT 17 U/L (<34); BILIRUBIN,TOTAL 0.7 MG/DL (0.3-1.2); BLOOD UREA NITROGEN 20 MG/DL (9-23); CALCIUM LEVEL 9.3 MG/DL (8.3-10.6); CARBON DIOXIDE LEVEL 33 MMOL/L (20-31); CHLORIDE LEVEL 105 MMOL/L (98-107); CHOLESTEROL LEVEL 169 MG/DL (<200); CHOLESTEROL RISK RATIO 2.73 (<5); CREATININE FOR GFR 0.93 MG/DL (0.70-1.30); FREE T4 1.34 NG/DL (0.89-1.76); GLOMERULAR FILTRATION RATE > 60.0 (>35); GLUCOSE, FASTING 152 MG/DL (74-106); HDL CHOLESTEROL 61.7 MG/DL (>40); LDL CHOLESTEROL 92.7 MG/DL (<100); NON-HDL-C 107.3 MG/DL; POTASSIUM SERUM 5.2 MMOL/L (3.5-5.1); SODIUM LEVEL 143 MMOL/L (136-145); THYROID STIMULATING HORMONE 3.666 uIU/ML (0.55-4.78); TOTAL PROTEIN 5.9 G/DL (5.7-8.2); TRIGLYCERIDES LEVEL 73 MG/DL (<150)
[2024-08-20 18:24] LABS: HEMOGLOBIN A1c 6.6 % (4.0-6.0)
== END ==
LOC: M SFHCCLAY 09:05
PROVIDERS: ATTEND Nurse Practitioner Family
DX: E11.9 Type 2 diabetes mellitus without complications (principal); I10 Essential (primary) hypertension; Z86.73 Personal history of transient ischemic attack (TIA), and cerebral infarction without residual deficits; I48.0 Paroxysmal atrial fibrillation; E03.9 Hypothyroidism, unspecified; I50.20 Unspecified systolic (congestive) heart failure; D03.9 Melanoma in situ, unspecified; H10.13 Acute atopic conjunctivitis, bilateral; L21.9 Seborrheic dermatitis, unspecified

== ENCOUNTER → 2024-10-01 | Outpatient (REF) | payer MEDICARE ==
[2024-10-01 18:32] LABS: HEMATOCRIT 44.6 % (42.0-52.0); HEMOGLOBIN 14.8 g/dl (13.5-17.5); MEAN CORPUSCULAR HEMOGLOBIN 31.3 pg (27.0-33.0); MEAN CORPUSCULAR HGB CONC 33.2 g/dl (32.0-36.5); MEAN CORPUSCULAR VOLUME 94.3 fl (80.0-96.0); PLATELET COUNT, AUTOMATED 207 10^3/uL (150-450); RED BLOOD COUNT 4.73 10^6/uL (4.30-6.10); WHITE BLOOD COUNT 6.6 10^3/uL (4.0-10.0)
[2024-10-01 18:56] LABS: ALBUMIN 3.6 G/DL (3.2-5.2); ALKALINE PHOSPHATASE 40 U/L (40-129); ALT/SGPT 41 U/L (7.0-40); AST/SGOT 32 U/L (<34); BILIRUBIN,TOTAL 0.5 MG/DL (0.3-1.2); BLOOD UREA NITROGEN 24 MG/DL (9-23); CALCIUM LEVEL 8.7 MG/DL (8.3-10.6); CARBON DIOXIDE LEVEL 33 MMOL/L (20-31); CHLORIDE LEVEL 104 MMOL/L (98-107); CREATININE FOR GFR 1.08 MG/DL (0.70-1.30); GLOMERULAR FILTRATION RATE > 60.0 (>35); GLUCOSE, FASTING 148 MG/DL (74-106); MAGNESIUM LEVEL 1.8 MG/DL (1.8-2.4); POTASSIUM SERUM 4.8 MMOL/L (3.5-5.1); SODIUM LEVEL 142 MMOL/L (136-145)
[2024-10-01 18:58] LABS: THYROID STIMULATING HORMONE 3.344 uIU/ML (0.55-4.78)
== END ==
LOC: M LABDRAWC 17:37
PROVIDERS: ATTEND Physician Assistant
DX: I50.42 Chronic combined systolic (congestive) and diastolic (congestive) heart failure (principal); I48.0 Paroxysmal atrial fibrillation

== ENCOUNTER → 2024-12-30 | Outpatient (REF) | payer MEDICARE ==
[~2024-12-30] MED LIST changes: -AMIO200T49 PO; +AMIO200T54 PO
[2024-12-30 18:31] LABS: CALCIUM LEVEL 8.9 MG/DL (8.3-10.6); CARBON DIOXIDE LEVEL 30.0 MMOL/L (20-31); CHLORIDE LEVEL 100.0 MMOL/L (98-107); CREATININE FOR GFR 0.91 MG/DL (0.70-1.30); GLOMERULAR FILTRATION RATE 84.7 (>35); POTASSIUM SERUM 4.1 MMOL/L (3.5-5.1); SODIUM LEVEL 140.0 MMOL/L (136-145)
== END ==
LOC: M LABDRAWC 17:33
PROVIDERS: ATTEND Physician Assistant
DX: I50.42 Chronic combined systolic (congestive) and diastolic (congestive) heart failure (principal)

== ENCOUNTER → 2024-12-30 | Outpatient (CLI) | payer MEDICARE | LOC: M CLY 11:16 | PROVIDERS: ATTEND Physician Assistant | DX: I48.0 Paroxysmal atrial fibrillation (principal); I50.42 Chronic combined systolic (congestive) and diastolic (congestive) heart failure; Z79.899 Other long term (current) drug therapy ==

== ENCOUNTER → 2024-12-30 | Outpatient (REF) | payer MEDICARE ==
[2024-12-30 18:34] LABS: FREE T4 1.13 NG/DL (0.89-1.76)
[2024-12-30 18:43] LABS: ESTIMATED AVERAGE GLUCOSE 143.0 MG/DL (60-110)
== END ==
LOC: M SFHCCLAY 11:08
PROVIDERS: ATTEND Nurse Practitioner Family
DX: E11.9 Type 2 diabetes mellitus without complications (principal); E03.9 Hypothyroidism, unspecified

== ENCOUNTER → 2025-01-14 | Outpatient (REF) | payer MEDICARE ==
[2025-01-14 18:37] LABS: CALCIUM LEVEL 9.1 MG/DL (8.3-10.6); CARBON DIOXIDE LEVEL 33.0 MMOL/L (20-31); CHLORIDE LEVEL 103.0 MMOL/L (98-107); CREATININE FOR GFR 0.97 MG/DL (0.70-1.30); GLOMERULAR FILTRATION RATE 78.4 (>35); POTASSIUM SERUM 4.1 MMOL/L (3.5-5.1); SODIUM LEVEL 142.0 MMOL/L (136-145)
[2025-01-14 18:40] LABS: PLATELET COUNT, AUTOMATED 192 10^3/uL (150-450)
== END ==
LOC: M LABDRAWC 17:44
PROVIDERS: ATTEND Physician Assistant
DX: I25.10 Atherosclerotic heart disease of native coronary artery without angina pectoris (principal)

== ENCOUNTER → 2025-04-01 | Outpatient (REF) | payer MEDICARE ==
[~2025-04-01] MED LIST changes: -EZET10TA21 PO; +EZET10TA57 PO
[2025-04-01 17:59] LABS: BASO # 0.1 10^3/uL (0.0-0.2); BASO % 1.5 % (0.0-1.0); EOS # 0.8 10^3/uL (0.0-0.5); EOS % 11.6 % (0.0-3.0); LYMPH # 1.9 10^3/uL (1.5-5.0); LYMPH % 28.1 % (24.0-44.0); MONO # 0.5 10^3/uL (0.0-0.8); MONO % 7.3 % (2.0-8.0); NEUTROPHILS # 3.4 10^3/uL (1.5-8.5); NEUTROPHILS % 51.2 % (36.0-66.0); PLATELET COUNT, AUTOMATED 258 10^3/uL (150-450)
[2025-04-01 18:06] LABS: ESTIMATED AVERAGE GLUCOSE 146.0 MG/DL (60-110)
[2025-04-01 18:21] LABS: ALT/SGPT 38.0 U/L (7.0-40); AST/SGOT 28.0 U/L (<34); CALCIUM LEVEL 9.0 MG/DL (8.3-10.6); CARBON DIOXIDE LEVEL 33.0 MMOL/L (20-31); CHLORIDE LEVEL 104.0 MMOL/L (98-107); CREATININE FOR GFR 1.0 MG/DL (0.70-1.30); GLOMERULAR FILTRATION RATE 75.6 (>35); MAGNESIUM LEVEL 1.9 MG/DL (1.8-2.4); POTASSIUM SERUM 4.3 MMOL/L (3.5-5.1); SODIUM LEVEL 143.0 MMOL/L (136-145)
[2025-04-01 18:23] LABS: FREE T4 1.46 NG/DL (0.89-1.76)
== END ==
LOC: M SFHCCLAY 11:12
PROVIDERS: ATTEND Nurse Practitioner Family
DX: E11.9 Type 2 diabetes mellitus without complications (principal); I11.0 Hypertensive heart disease with heart failure; I48.0 Paroxysmal atrial fibrillation; I50.20 Unspecified systolic (congestive) heart failure; E03.9 Hypothyroidism, unspecified; I25.10 Atherosclerotic heart disease of native coronary artery without angina pectoris

== ENCOUNTER → 2025-04-01 | Outpatient (REF) | payer MEDICARE ==
[2025-04-01 19:22] LABS: PLATELET COUNT, AUTOMATED 276 10^3/uL (150-450)
[2025-04-01 19:27] LABS: CALCIUM LEVEL 9.0 MG/DL (8.3-10.6); CARBON DIOXIDE LEVEL 34.0 MMOL/L (20-31); CHLORIDE LEVEL 103.0 MMOL/L (98-107); CREATININE FOR GFR 1.01 MG/DL (0.70-1.30); GLOMERULAR FILTRATION RATE 74.7 (>35); POTASSIUM SERUM 4.2 MMOL/L (3.5-5.1); SODIUM LEVEL 144.0 MMOL/L (136-145)
== END ==
LOC: M LAB REF 17:42
PROVIDERS: ATTEND Physician Assistant
DX: I25.10 Atherosclerotic heart disease of native coronary artery without angina pectoris (principal)

== ENCOUNTER → 2025-04-06 | Outpatient (CLI) | payer MEDICARE | LOC: M PLAIMG 12:31 | PROVIDERS: ATTEND Physician Assistant | DX: I35.0 Nonrheumatic aortic (valve) stenosis (principal); Z95.3 Presence of xenogenic heart valve ==

== ENCOUNTER → 2025-06-08 | Outpatient (REF) | payer MEDICARE ==
[2025-06-08 18:41] LABS: CHOLESTEROL LEVEL 134.0 MG/DL (<200); CHOLESTEROL RISK RATIO 2.2 (<5); LDL CHOLESTEROL 56.8 MG/DL (<100); NON-HDL-C 73.2 MG/DL; TRIGLYCERIDES LEVEL 82.0 MG/DL (<150)
[2025-06-08 18:52] LABS: ESTIMATED AVERAGE GLUCOSE 143.0 MG/DL (60-110)
== END ==
LOC: M SFHCCLAY 10:03
PROVIDERS: ATTEND Nurse Practitioner Family
DX: R63.4 Abnormal weight loss (principal); I10 Essential (primary) hypertension; E11.9 Type 2 diabetes mellitus without complications; Z86.73 Personal history of transient ischemic attack (TIA), and cerebral infarction without residual deficits; I48.0 Paroxysmal atrial fibrillation; E03.9 Hypothyroidism, unspecified; I50.20 Unspecified systolic (congestive) heart failure; D03.9 Melanoma in situ, unspecified; H10.13 Acute atopic conjunctivitis, bilateral; L21.9 Seborrheic dermatitis, unspecified

== ENCOUNTER → 2025-06-08 | Outpatient (REF) | payer MEDICARE ==
[2025-06-09 11:09] LABS: ALT/SGPT 24.0 U/L (7.0-40); AST/SGOT 22.0 U/L (<34); CALCIUM LEVEL 9.0 MG/DL (8.3-10.6); CARBON DIOXIDE LEVEL 32.0 MMOL/L (20-31); CHLORIDE LEVEL 103.0 MMOL/L (98-107); CREATININE FOR GFR 0.89 MG/DL (0.70-1.30); GLOMERULAR FILTRATION RATE 86.1 (>35); MAGNESIUM LEVEL 1.8 MG/DL (1.8-2.4); POTASSIUM SERUM 4.3 MMOL/L (3.5-5.1); SODIUM LEVEL 142.0 MMOL/L (136-145)
[2025-06-09 11:12] LABS: FREE T4 1.49 NG/DL (0.89-1.76)
== END ==
LOC: M LABDRAWC 10:22
PROVIDERS: ATTEND Physician Assistant
DX: I50.42 Chronic combined systolic (congestive) and diastolic (congestive) heart failure (principal); I48.0 Paroxysmal atrial fibrillation